=== PATIENT | female | born 1940 | race Hispanic/Latino ===

== ENCOUNTER 2018-05-15 11:35 | Emergency (ER) | payer OTHER ==
--- NOTE | 2018-05-15 12:14 | RAD REPORT ---
EXAM DESCRIPTION: CT - Head Brain Wo Cont - 05/15/2018 12:00 pm CLINICAL HISTORY: Left-sided numbness COMPARISON: 2007 TECHNIQUE: Computed axial tomography of the head was obtained. IV contrast was not requested. All CT scans are performed using dose optimization technique as appropriate and may include automated exposure control or mA/KV adjustment according to patient size. FINDINGS: An intracranial bleed is not seen . The ventricles are normal in caliber. No extra-axial fluid collection is noted. Fluid within the sinuses/ mastoids is not seen. IMPRESSION: No acute intracranial abnormality is seen. If patient's symptoms persist MRI of the bra in would be recommended.
--- NOTE | 2018-05-15 12:24 | ER ---
Nurse's Notes [facility] Name: Shira Bhakta Age: 77 yrs Sex: Female : 1940 Arrival Date: 05/15/2018 Time: 11:39 Bed 6 Private MD: Fatou Wells Diagnosis: Cerebral infarction Presentation: 05/15 11:51 Presenting complaint: Patient states: Patient reports numbness and tingling to left aj side of body since 1300 yesterday after sudden onset of headache when lifting head. Patient reports her granddaughter told her she was talking funny last night. Steady gait, mechanical press operator equal, speech is clear. Reports heaviness in left eyelid and sensation of "something stuck in my throat". Transition of care: patient was not received from another setting of care. An acute neurological deficit is present. The charge nurse has been notified. The patient has been moved to a treatment area. Pre-hospital glucose is not applicable to this patient. Onset of symptoms was May 14, 2018 at 13:00. Risk Assessment: Do you want to hurt yourself or someone else? Patient reports no desire to harm self or others. Initial Sepsis Screen: Does the patient meet any 2 criteria? No. Patient's initial sepsis screen is negative. Does the patient have a suspected source of infection? No. Patient's initial sepsis screen is negative. 11:51 Method Of Arrival: Ambulatory 11:51 Acuity: MELI 2 11:56 Care prior to arrival: Medication(s) given: ASA, 81 mg, x 2. Triage Assessment: 11:57 The onset of the patients symptoms was May 14, 2018 at 13:00. General: Appears in aj no apparent distress. comfortable, Behavior is calm, cooperative, appropriate for age. Pain: Denies pain. Neuro: Level of Consciousness is awake, alert, obeys commands, Oriented to person, place, time, situation, Appropriate for age Employment Services Director are equal bilaterally Moves all extremities. Full function Gait is steady, Speech is normal, Facial symmetry appears normal, Tingling in left side of forehead, left temporal area, left sikh, left zygomatic area, left cheek, left arm and left leg Reports headache in right parietal area, resolved paresthesias in left side of forehead, left temporal area, left eye, left sikh, left side of the nose, left zygomatic area, left cheek, left mandible, left arm and left leg. Respiratory: Airway is patent Respiratory effort is even, unlabored, Respiratory pattern is regular, symmetrical. Derm: Skin is intact, is healthy with good turgor, Skin is pink, warm \\T\\ dry. normal. Stroke Activation: Symptom onset > 6 hours Physician: Stroke Attending; Name: ; Notified At: ; Arrived At: Physician: Chief Stroke Resident; Name: ; Notified At: ; Arrived At: Physician: Stroke Resident; Name: ; Notified At: ; Arrived At: Physician: ED Attending; Name: ; Notified At: ; Arrived At: Physician: ED Resident; Name: ; Notified At: ; Arrived At: Historical: - Allergies: : No Known Allergies; aj - Home Meds: :55 levothyroxine 50 mcg tab 1 tab once daily [Active]; progesterone micronized oral oral aj [Active]; - PMHx: : Hypothyroidism; aj - PSHx: :55 Appendectomy; Hysterectomy; Lumpectomy; aj - Immunization history:: Adult Immunizations up to date. - Social history:: Smoking status: Patient/guardian denies using tobacco. - Ebola Screening: : Patient negative for fever greater than or equal to 101.5 degrees Fahrenheit, and additional compatible Ebola Virus Disease symptoms Patient denies exposure to infectious person Patient denies travel to an Ebola-affected area in the 21 days before illness onset No symptoms or risks identified at this time. - Family history:: not pertinent. Screenin:45 Abuse screen: Denies threats or abuse. Denies injuries from another. Nutritional aj screening: No deficits noted. Tuberculosis screening: No symptoms or risk factors identified. Fall Risk None identified. Assessment: 11:45 T-PA (Activase) Screening: Contraindications: Patient reports onset of signs and aj symptoms of stroke greater than 6 hours ago: Yes. 12:00 The patient has not been NPO before screening. The patient is alert, and able to follow aj commands. The patient does not exhibit slurred or garbled speech. The patient is not exhibiting difficulty speaking. The patient does not exhibit difficulty understanding words. The patient is able to swallow own secretions with no drooling or need for suction. Patient tolerated one teaspoon of water. No drooling, immediate coughing, gurgling, or clearing of the throat was noted. The patient tolerated 90mL of water. No drooling, immediate coughing, gurgling, or clearing of the throat was noted. The patient passed the bedside swallow screening. Oral medications may be given as ordered. Contact Physician for further diet orders. Provider notified of bedside swallow screening results: Cam Otto MD. 12:00 Reassessment: Patient appears in no apparent distress at this time. No changes from previously documented assessment. Patient and/or family updated on plan of care and expected duration. Pain level reassessed. Patient is alert, oriented x 3, equal unlabored respirations, skin warm/dry/pink. Patient denies pain at this time. Neuro: Level of Consciousness is awake, alert, obeys commands, Oriented to person, place, time, situation, Appropriate for age Employment Services Director are equal bilaterally Moves all extremities. Full function Gait is steady, Speech is normal, Facial symmetry appears normal, Pupils are PERRLA, Tingling in face, left arm and left leg and left mandible and left side of the nose and left eye. 14:45 Reassessment: Patient is alert, oriented x 3, equal unlabored respirations, skin aa5 warm/dry/pink. Vital Signs: 11:57 BP 147 / 81; Pulse 81; Resp 19; Temp 98.4; Pulse Ox 96% on R/A; Weight 58.97 kg; Height aj 5 ft. 6 in. (167.64 cm); 13:19 BP 124 / 67; Pulse 76; Resp 18; Pulse Ox 99% on R/A; aj 11:57 Body Mass Index 20.98 (58.97 kg, 167.64 cm) NIH Stroke Scale Scores: 11:45 NIHSS Score: 1 aj 12:20 NIHSS Score: 1 [facility] ED Course: 11:39 Patient arrived in ED. mr 11:40 Fatou Wells MD is Private Physician. mr 11:45 Cam Otto MD is Attending Physician. [facility] 11:45 Inserted saline lock: 22 gauge in right forearm, using aseptic technique. Blood aj collected. 11:50 Aracelis Hill, RN is Primary Nurse. aa5 11:50 Primary Nurse role handed off by Aracelis Hill, RN aj 11:50 Elenita Castro, RAS is Primary Nurse. aj 11:54 Triage completed. aj 11:57 Arm band placed on left wrist. Patient placed in an exam room, on a stretcher, on aj ranger aide, on pulse oximetry. CT ordered. 12:00 CT Head Brain wo Cont In Process Unspecified. EDMS 12:13 X-ray completed. Portable x-ray completed in exam room. Patient tolerated procedure la2 well. 12:16 Stroke CXR 1 View In Process Unspecified. EDMS 12:16 Patient has correct armband on for positive identification. Placed in gown. Bed in low mh5 position. Call light in reach. Side rails up X2. Warm blanket given. roller leveler operator on. Pulse ox on. NIBP on. 12:16 EKG done, by ED staff, reviewed by Cam Otto MD. mh5 12:44 Urine collected: clean catch specimen, clear. mh5 13:34 Head angio In Process Unspecified. EDMS 13:36 US Carotid Artery Bilateral In Process Unspecified. EDMS 13:55 IV discontinued, intact, Pressure dressing applied. aj 13:55 Inserted saline lock: 20 gauge in left antecubital area, using aseptic technique. aj 14:06 Report given to Nelson MCGINNIS [facility] Neuro IMU. aj 14:45 No provider procedures requiring assistance completed. aa5 14:45 Patient transferred, IV remains in place. aa5 Administered Medications: 12:16 CANCELLED (dose changed): Aspirin Chewable Tablet 324 mg PO once; 81 mg tablets x 4 aj 12:33 Drug: NS 0.9% 1000 ml Route: IV; Rate: 1 bolus; Site: right forearm; aj 13:15 Follow up: Response: No adverse reaction; IV Status: Completed infusion; IV Intake: aj 1000ml 12:33 Drug: foLIC Acid 1 mg Route: IVPB; Site: right forearm; aj 13:15 Follow up: Response: No adverse reaction; IV Status: Completed infusion; IV Intake: aj 0.2ml 12:33 Drug: Aspirin 162 mg Route: PO; aj 13:14 Follow up: Response: No adverse reaction aj 14:43 Not Given (Patient Refused): Rocephin - (cefTRIAXone) 1 grams IVPB once over 30 mins; aa5 (mix in 50 mL NS) Intake: 13:15 IV: 0ml; Total: 0ml. aj 13:15 IV: 1000ml; Total: 1000ml. aj Outcome: 12:22 ER care complete, transfer ordered by MD. gutierrez 14:45 [place] by ground [place] [facility] [facility] [place]. aa5 X-rays sent w/ patient. Note: Report given to [facility] 14:45 Condition: stable 14:45 Instructed on the need for transfer, Demonstrated understanding of instructions. 14:51 Patient left the ED. aa5 NIH Stroke Scale - NIH Stroke Score Date: 05/15/2018 Time: 11:45 Total Score = 1 1a. Level of Consciousness (LOC) - 0(Alert) 1b. Level of Consciousness (LOC) (Year \\T\\ Age) - 0(Both) 1c. LOC Commands (Open \\T\\ Closes Eyes/Shell Freezing Machine Operator) - 0(Both) 2. Best Gaze (Lateral Gaze Paresis) - 0(Normal) 3. Visual Field Loss - 0(No visual loss) 4. Facial Palsy - 0(Normal) 5a. Left Arm: Motor (10-second hold) - 0(No drift) 5b. Right Arm: Motor (10-second hold) - 0(No drift) 6a. Left Leg: Motor (5-second hold - always test supine) - 0(No drift) 6b. Right Leg: Motor (5-second hold - always test supine) - 0(No drift) 7. Limb Ataxia (finger/nose \\T\\ heel/sahu - test with eyes open) - 0(Absent) 8. Sensory Loss (pinprick arms/legs/face) - 1(Mild to moderate loss) 9. Best Language: Aphasia (description/naming/reading) - 0(No aphasia) 10. Dysarthria (speech clarity - read or repeat words) - 0(Normal) 11. Extinction and Inattention (visual/tactile/auditory/spatial/personal) - 0(No abnormality) Initials: NIH Stroke Scale - NIH Stroke Score Date: 05/15/2018 Time: 12:20 Total Score = 1 1a. Level of Consciousness (LOC) - 0(Alert) 1b. Level of Consciousness (LOC) (Year \\T\\ Age) - 0(Both) 1c. LOC Commands (Open \\T\\ Closes Eyes/Shell Freezing Machine Operator) - 0(Both) 2. Best Gaze (Lateral Gaze Paresis) - 0(Normal) 3. Visual Field Loss - 0(No visual loss) 4. Facial Palsy - 0(Normal) 5a. Left Arm: Motor (10-second hold) - 0(No drift) 5b. Right Arm: Motor (10-second hold) - 0(No drift) 6a. Left Leg: Motor (5-second hold - always test supine) - 0(No drift) 6b. Right Leg: Motor (5-second hold - always test supine) - 0(No drift) 7. Limb Ataxia (finger/nose \\T\\ heel/sahu - test with eyes open) - 0(Absent) 8. Sensory Loss (pinprick arms/legs/face) - 1(Mild to moderate loss) 9. Best Language: Aphasia (description/naming/reading) - 0(No aphasia) 10. Dysarthria (speech clarity - read or repeat words) - 0(Normal) 11. Extinction and Inattention (visual/tactile/auditory/spatial/personal) - 0(No abnormality) Initials: brenda Signatures: Dispatcher [employer] EDElenita Mendoza RN RN aj Anderson, Corey, MD MD cha Rivera, Mary mr Aracelis Hill, Noemí Smallwood RN Melissa Chu Corrections: (The following items were deleted from the chart) 11:49 11:48 Aracelis Hill, RAS is Primary Nurse. hi do 11:57 11:51 Care prior to arrival: None. ramona greene
--- NOTE | 2018-05-15 12:24 | EDPHYS ---
Physician Documentation [facility] Name: Shira Bhakta Age: 77 yrs Sex: Female : 1940 Arrival Date: 05/15/2018 Time: 11:39 Bed 6 Private MD: Fatou Wells ED Physician Cam Otto HPI: 05/15 12:16 This 77 yrs old Female presents to ER via Ambulatory with complaints of Left brenda Side numbness. 12:16 The patient's problem is reported as paresthesias, in left upper extremity, in left brenda lower extremity, in left side of face. Onset: The symptoms/episode began/occurred yesterday. Duration: The episode is continuous. Context: the episode(s) was witnessed, by family. The symptoms are alleviated by nothing. The symptoms are aggravated by nothing. The patient presents to the emergency department with paresthesias of the left lower extremity, left upper extremity, left side of the face. Context: occurred at home. Severity of symptoms: At their worst the symptoms were mild in the emergency department the symptoms are unchanged. Historical: - Allergies: 11:55 No Known Allergies; aj - Home Meds: 11:55 levothyroxine 50 mcg tab 1 tab once daily [Active]; progesterone micronized oral oral aj [Active]; - PMHx: 11:55 Hypothyroidism; aj - PSHx: 11:55 Appendectomy; Hysterectomy; Lumpectomy; aj - Immunization history:: Adult Immunizations up to date. - Social history:: Smoking status: Patient/guardian denies using tobacco. - Ebola Screening: : Patient negative for fever greater than or equal to 101.5 degrees Fahrenheit, and additional compatible Ebola Virus Disease symptoms Patient denies exposure to infectious person Patient denies travel to an Ebola-affected area in the 21 days before illness onset No symptoms or risks identified at this time. - Family history:: not pertinent. ROS: 12:16 Constitutional: Negative for fever, chills, and weight loss, Eyes: Negative for injury, brenda pain, redness, and discharge, ENT: Negative for injury, pain, and discharge, Neck: Negative for injury, pain, and swelling, Cardiovascular: Negative for chest pain, palpitations, and edema, Respiratory: Negative for shortness of breath, cough, wheezing, and pleuritic chest pain, Abdomen/GI: Negative for abdominal pain, nausea, vomiting, diarrhea, and constipation, Back: Negative for injury and pain, : Negative for injury, bleeding, discharge, and swelling, MS/Extremity: Negative for injury and deformity, Skin: Negative for injury, rash, and discoloration, Psych: Negative for depression, anxiety, suicide ideation, homicidal ideation, and hallucinations, Allergy/Immunology: Negative for hives, rash, and allergies, Endocrine: Negative for neck swelling, polydipsia, polyuria, polyphagia, and marked weight changes, Hematologic/Lymphatic: Negative for swollen nodes, abnormal bleeding, and unusual bruising. 12:16 Neuro: Positive for numbness, of the left arm and left leg and left mandible and left side of the nose and left eye. Exam: 12:16 Radiologist reports: see reporttrey cha 12:16 Constitutional: This is a well developed, well nourished patient who is awake, alert, and in no acute distress. Head/Face: Normocephalic, atraumatic. Eyes: Pupils equal round and reactive to light, extra-ocular motions intact. Lids and lashes normal. Conjunctiva and sclera are non-icteric and not injected. Cornea within normal limits. Periorbital areas with no swelling, redness, or edema. ENT: Nares patent. No nasal discharge, no septal abnormalities noted. Tympanic membranes are normal and external auditory canals are clear. Oropharynx with no redness, swelling, or masses, exudates, or evidence of obstruction, uvula midline. Mucous membranes moist. Neck: Trachea midline, no thyromegaly or masses palpated, and no cervical lymphadenopathy. Supple, full range of motion without nuchal rigidity, or vertebral point tenderness. No Meningismus. Chest/axilla: Normal chest wall appearance and motion. Nontender with no deformity. No lesions are appreciated. Cardiovascular: Regular rate and rhythm with a normal S1 and S2. No gallops, murmurs, or rubs. Normal PMI, no JVD. No pulse deficits. Respiratory: Lungs have equal breath sounds bilaterally, clear to auscultation and percussion. No rales, rhonchi or wheezes noted. No increased work of breathing, no retractions or nasal flaring. Abdomen/GI: Soft, non-tender, with normal bowel sounds. No distension or tympany. No guarding or rebound. No evidence of tenderness throughout. Back: No spinal tenderness. No costovertebral tenderness. Full range of motion. Female : Normal external genitalia. Skin: Warm, dry with normal turgor. Normal color with no rashes, no lesions, and no evidence of cellulitis. MS/ Extremity: Pulses equal, no cyanosis. Neurovascular intact. Full, normal range of motion. Neuro: Awake and alert, GCS 15, oriented to person, place, time, and situation. Cranial nerves II-XII grossly intact. Motor strength 5/5 in all extremities. Sensory grossly intact. Cerebellar exam normal. Normal gait. Psych: Awake, alert, with orientation to person, place and time. Behavior, mood, and affect are within normal limits. 12:20 Neuro: symptoms began at 130 pm 05/14/18, not a tpa candidate. [facility] Vital Signs: 11:57 BP 147 / 81; Pulse 81; Resp 19; Temp 98.4; Pulse Ox 96% on R/A; Weight 58.97 kg; Height aj 5 ft. 6 in. (167.64 cm); 13:19 BP 124 / 67; Pulse 76; Resp 18; Pulse Ox 99% on R/A; aj 11:57 Body Mass Index 20.98 (58.97 kg, 167.64 cm) NIH Stroke Scale Scores: 11:45 NIHSS Score: 1 12:20 NIHSS Score: 1 [facility] MDM: 11:45 Patient medically screened. [facility] 12:22 Data reviewed: vital signs, nurses notes, lab test result(s), EKG, radiologic studies, [facility] CT scan, plain films. 05/15 12:07 Order name: Basic Metabolic Panel 05/15 12:07 Order name: CBC with Diff 05/15 12:07 Order name: Protime (+inr) 05/15 12:07 Order name: Ptt, Activated 05/15 12:08 Order name: Basic Metabolic Panel; Complete Time: 13:10 EDMS 05/15 12:08 Order name: CBC with Automated Diff; Complete Time: 13:10 EDMS 05/15 11:50 Order name: CT Head Brain wo Cont; Complete Time: 13:10 aa5 05/15 12:07 Order name: Stroke CXR 1 View; Complete Time: 13:59 05/15 12:08 Order name: Protime (+INR); Complete Time: 13:10 EDMS 08 12:08 Order name: PTT, Activated Partial Thromb; Complete Time: 13:10 EDMS 08 12:34 Order name: US Carotid Artery Bilateral; Complete Time: 13:59 brenda 05/15 12:36 Order name: Head angio; Complete Time: 13:59 EDMS 08 13:12 Order name: Urine Culture [facility] 05/15 13:29 Order name: Urine Dipstick--Ancillary (enter results); Complete Time: 13:59 bd 05/15 12:07 Order name: EKG; Complete Time: 12:08 aj 05/15 12:07 Order name: Accucheck; Complete Time: 13:18 aj 05/15 12:07 Order name: Cardiac monitoring; Complete Time: 12:07 05/15 12:07 Order name: EKG - Nurse/Tech; Complete Time: 12:16 aj 05/15 12:07 Order name: IV Saline Lock; Complete Time: 12:33 05/15 12:07 Order name: Labs collected and sent; Complete Time: 12:08 05/15 12:07 Order name: NPO; Complete Time: 12:07 aj 05/15 12:07 Order name: O2 Per Protocol; Complete Time: 12:08 aj 05/15 12:07 Order name: O2 Sat Monitoring; Complete Time: 12:08 05/15 13:12 Order name: Urine Dipstick-Ancillary (obtain specimen); Complete Time: 13:15 [facility] Administered Medications: 12:16 CANCELLED (dose changed): Aspirin Chewable Tablet 324 mg PO once; 81 mg tablets x 4 aj 12:33 Drug: NS 0.9% 1000 ml Route: IV; Rate: 1 bolus; Site: right forearm; aj 13:15 Follow up: Response: No adverse reaction; IV Status: Completed infusion; IV Intake: aj 1000ml 12:33 Drug: foLIC Acid 1 mg Route: IVPB; Site: right forearm; aj 13:15 Follow up: Response: No adverse reaction; IV Status: Completed infusion; IV Intake: aj 0.2ml 12:33 Drug: Aspirin 162 mg Route: PO; aj 13:14 Follow up: Response: No adverse reaction aj 14:43 Not Given (Patient Refused): Rocephin - (cefTRIAXone) 1 grams IVPB once over 30 mins; aa5 (mix in 50 mL NS) Disposition: 05/15/18 12:22 Transfer ordered to [facility]. Diagnosis is Cerebral infarction. - Reason for transfer: Higher level of care. - Accepting physician is to [facility]. - Condition is Fair. - Problem is new. - Symptoms have improved. NIH Stroke Scale - NIH Stroke Score Date: 05/15/2018 Time: 11:45 Total Score = 1 1a. Level of Consciousness (LOC) - 0(Alert) 1b. Level of Consciousness (LOC) (Year \T\ Age) - 0(Both) 1c. LOC Commands (Open \T\ Closes Eyes/Managing Cognitive Engineer) - 0(Both) 2. Best Gaze (Lateral Gaze Paresis) - 0(Normal) 3. Visual Field Loss - 0(No visual loss) 4. Facial Palsy - 0(Normal) 5a. Left Arm: Motor (10-second hold) - 0(No drift) 5b. Right Arm: Motor (10-second hold) - 0(No drift) 6a. Left Leg: Motor (5-second hold - always test supine) - 0(No drift) 6b. Right Leg: Motor (5-second hold - always test supine) - 0(No drift) 7. Limb Ataxia (finger/nose \T\ heel/sahu - test with eyes open) - 0(Absent) 8. Sensory Loss (pinprick arms/legs/face) - 1(Mild to moderate loss) 9. Best Language: Aphasia (description/naming/reading) - 0(No aphasia) 10. Dysarthria (speech clarity - read or repeat words) - 0(Normal) 11. Extinction and Inattention (visual/tactile/auditory/spatial/personal) - 0(No abnormality) Initials: NIH Stroke Scale - NIH Stroke Score Date: 05/15/2018 Time: 12:20 Total Score = 1 1a. Level of Consciousness (LOC) - 0(Alert) 1b. Level of Consciousness (LOC) (Year \T\ Age) - 0(Both) 1c. LOC Commands (Open \T\ Closes Eyes/Managing Cognitive Engineer) - 0(Both) 2. Best Gaze (Lateral Gaze Paresis) - 0(Normal) 3. Visual Field Loss - 0(No visual loss) 4. Facial Palsy - 0(Normal) 5a. Left Arm: Motor (10-second hold) - 0(No drift) 5b. Right Arm: Motor (10-second hold) - 0(No drift) 6a. Left Leg: Motor (5-second hold - always test supine) - 0(No drift) 6b. Right Leg: Motor (5-second hold - always test supine) - 0(No drift) 7. Limb Ataxia (finger/nose \T\ heel/sahu - test with eyes open) - 0(Absent) 8. Sensory Loss (pinprick arms/legs/face) - 1(Mild to moderate loss) 9. Best Language: Aphasia (description/naming/reading) - 0(No aphasia) 10. Dysarthria (speech clarity - read or repeat words) - 0(Normal) 11. Extinction and Inattention (visual/tactile/auditory/spatial/personal) - 0(No abnormality) Initials: brenda Signatures: Dispatcher [employer] Elenita Lucas RN RN aj Anderson, Corey, MD MD cha Calderon, Audri, RN RN aa5 Corrections: (The following items were deleted from the chart) 12:16 12:15 Aspirin Chewable Tablet 324 mg PO once; 81 mg tablets x 4 ordered. brenda greene 14:51 12:22 05/15/2018 12:22 Transfer ordered to [facility]. aa5 Diagnosis is Cerebral infarction. Reason for transfer: Higher level of care. Accepting physician is to [facility]. Condition is Fair. Problem is new. Symptoms have improved. brenda
[2018-05-15] MEDS ORDERED: ASPIRIN 81 MG CHEWABLE TABLET ONE (12:26)
[2018-05-15] MEDS ORDERED: FOLIC ACID 5 MG/ML VIAL ONE (12:27)
[2018-05-15] MEDS ORDERED: NA CHLORIDE 0.9% 1,000 ML ONE (12:27)
[2018-05-15 12:52] LABS: Absolute Lymphocytes (CBC) 3.1 K/uL (0.7-4.9); Absolute Monocytes 0.6 K/uL (0.1-1.3); Absolute Neutrophil 3.9 K/uL (1.8-8.0); Basophils % 1.1 % (0-1.3); Eosinophils % 1.2 % (0-4.4); Hematocrit 39.1 % (36.0-45.0); Lymphocytes % 39.8 % (15.3-44.8); MCH 32.1 pg (27.0-35.0); MCV 92.5 fL (80-100); MPV 9.3 fL (7.6-11.3); Monocytes % 7.4 % (3.3-12.3); RBC Red Blood Cell Count 4.23 M/uL (3.86-4.86)
[2018-05-15 13:03] LABS: Protime INR 1.04
[2018-05-15 13:04] LABS: BUN Blood Urea Nitrogen 16 mg/dL (7-18); Bicarbonate 26 mmol/L (21-32); Glucose Level 113 mg/dL (74-106); Potassium 4.1 mmol/L (3.5-5.1); Sodium Level 144 mmol/L (136-145)
[2018-05-15 13:43] LABS: Urine Blood TRACE (NEG); Urine Glucose NEGATIVE (NEG); Urine Protein NEGATIVE (NEG)
--- NOTE | 2018-05-15 13:52 | RAD REPORT ---
EXAM DESCRIPTION: CTHead angio05/15/2018 1:34 pm CLINICAL HISTORY: Left-sided numbness COMPARISON: Head CT May 15 TECHNIQUE: CT angiogram of the head was obtained. 50 cc Isovue 370 was intravenously. 3D MIPS recons truction performed All CT scans are performed using dose optimization technique as appropriate and may include automated exposure control or mA/KV adjustment according to patient size. FINDINGS: The basilar, internal carotid, anterior cerebral, middle cerebral and posterior cerebral a rteries are normal caliber. An aneurysm is not seen. Right vertebral artery is hypoplastic A significant stenosis is not noted. IMPRESSION: Unremarkable CT angiogram head.
--- NOTE | 2018-05-15 13:54 | RAD REPORT ---
EXAM DESCRIPTION: USCarotid Artery Jrhftwpnr04/8/2018 1:36 pm CLINICAL HISTORY: Numbness COMPARISON: None FINDINGS: The velocity of the right internal carotid artery equals 60 cm/sec. The right ICA/CCA rati o 0.9 The velocity of the left internal carotid artery equals 70 cm/sec. The left ICA/CCA ratio 1.3 Plaque within the carotid arteries is not noted The vertebral arteries demonstrate antegrade flow IMPRESSION: Unremarkable exam NASCET criteria used. Mild 0-49% stenosis Moderate 50-69% stenosis Severe 70-99% stenosis
--- NOTE | 2018-05-15 13:55 | RAD REPORT ---
EXAM DESCRIPTION: Duncan Single View05/15/2018 12:15 pm CLINICAL HISTORY: Numbness COMPARISON: 2009 FINDINGS: The lungs appear clear of acute infiltrate. The heart is normal size IMPRESSION: No acute abnormalities displayed
[2018-05-15] MEDS ORDERED: CEFTRIAXONE/SWI 1gm 0 GM/0 ML SYR ONE (14:47)
--- NOTE | 2018-05-17 07:14 | EKG ---
Test Date: 2018-05-15 Test Time: 12:13:52 Proof Load Mechanic: WILIAM MEASUREMENT RESULTS: Intervals: Rate: 74 AL: 154 QRSD: 70 QT: 382 QTc: 424 Lee: P: 62 AL: 154 QRS: 2 T: 60 INTERPRETIVE STATEMENTS: Normal sinus rhythm Cannot rule out Anterior infarct, age undetermined Abnormal ECG Compared to ECG 08/21/2009 08:47:43 Myocardial infarct finding now present Electronically Signed On 05-17-18 07:11:18 ORDER ENTRY REPRESENTATIVE by Vasyl Alas
== END 2018-05-15 14:51 | disposition short-term general hospital (02) ==
LOC: ER 11:35
DX: I63.9 Cerebral infarction, unspecified (principal); R29.701 NIHSS score 1; E03.9 Hypothyroidism, unspecified
CPT/HCPCS: 36415; 70450; 70496; 71045; 80048; 81003; 85025; 85610; 85730; 87086; 87088; 93005; 93880; 96365; 99285; J7030; Q9967; J0696

== ENCOUNTER 2018-07-26 11:51 | Emergency (ER) | payer OTHER ==
--- OUTSIDE RECORDS SUMMARY | 2018-07-26 11:57 | XMS REPORT | Clinical Summary ---
:[address] [facility] Address [address] [place] [address] Care Team Providers Name Role Phone Pcp, No Primary Care Provider Unavailable Allergies No Known Allergies Medications Medication Sig Dispensed Refills Start Date End Date Status latanoprost latanoprost 0 Active (XALATAN) 0.005 % 0.005 % eye ophthalmic solution drops pravastatin 20 mg daily. 1 02/24/2018 Active (PRAVACHOL) 20 MG tablet lisinopril 2.5 mg. 0 Active (PRINIVIL,ZESTRIL) 2.5 MG tablet levothyroxine 50 mcg. 1 03/13/2018 Active (SYNTHROID, LEVOTHROID) 50 MCG tablet aspirin 81 MG Take 1 tablet 0 05/18/2018 Active chewable tablet (81 mg total) by 9 mouth daily. furosemide (LASIX) 20 mg. 0 Discontinued 20 MG tablet 8 propranolol 20 mg. 0 Discontinued (INDERAL) 20 MG 8 tablet Active Problems Problem Noted Date Hemianesthesia 05/15/2018 Headache 05/15/2018 Hypothyroidism 05/15/2018 TIA (transient ischemic attack) 05/15/2018 Encounters Date Type Specialty Care Team Description 05/15/2018 - Hospital Encounter General Internal Shahid Garrett Acute non intractable tension-type headache; 05/17/2018 Medicine Pradeep MURO MD Hemianesthesia; Luis Raymond Hypothyroidism, unspecified type; MD Juanito Cerebellar cyst; Kamran Melchor, TIA (transient ischemic attack); Abnormal brain MRI 05/15/2018 Travel after 07/25/2017 Family History Medical History Relation Name Comments Diabetes Brother Diabetes Father Diabetes Mother Stroke Mother Diabetes Sister Relation Name Status Comments Brother Father Mother Sister Social History Tobacco Use Types Packs/Day Years Used Date Never Smoker Smokeless Tobacco: Never Used Alcohol Use Drinks/Week oz/Week Comments No Alcohol Habits Answer Date Recorded How often do you have a drink containing alcohol? Never 05/15/2018 How many drinks containing alcohol do you have on a typical Not asked day when you are drinking? How often do you have six or more drinks on one occasion? Not asked Sex Assigned at Date Recorded Not on file Job Start Date Occupation Industry Not on file Not on file Not on file Travel History Travel Start Travel End No recent travel history available. Last Filed Vital Signs Vital Sign Reading Time Taken Blood Pressure 110/59 05/17/2018 10:00 AM CYLINDER INSPECTOR Pulse 77 05/17/2018 10:00 AM CYLINDER INSPECTOR Temperature 35.7 C (96.3 F) 05/17/2018 10:00 AM CYLINDER INSPECTOR Respiratory Rate 18 05/17/2018 10:00 AM CYLINDER INSPECTOR Oxygen Saturation 96% 05/17/2018 10:00 AM CYLINDER INSPECTOR Inhaled Oxygen Concentration - - Weight 57.4 kg (126 lb 9 oz) 05/15/2018 7:07 PM CYLINDER INSPECTOR Height 167.6 cm (5' 6") 05/15/2018 7:07 PM CYLINDER INSPECTOR Body Mass Index 20.43 05/15/2018 7:07 PM CYLINDER INSPECTOR Plan of Treatment Not on file Procedures Procedure Name Priority Date/Time Associated Comments Diagnosis RHYTHM STRIP - SCAN 05/24/2018 10:20 AM CYLINDER INSPECTOR REPORT OF PROCEDURE - 05/24/2018 10:20 ENDOSCOPY SCAN AM CYLINDER INSPECTOR MR BRAIN WITHOUT & Routine 05/16/2018 10:19 Results for this WITH IV CONTRAST PM CYLINDER INSPECTOR procedure are in the results section. ECHOCARDIOGRAM REPORT 05/16/2018 2:20 - SCAN PM CYLINDER INSPECTOR MR BRAIN WITHOUT IV Routine 05/16/2018 9:45 Results for this CONTRAST AM CYLINDER INSPECTOR procedure are in the results section. CBC (HEMOGRAM ONLY) Routine 05/15/2018 5:45 Results for this PM CYLINDER INSPECTOR procedure are in the results section. COMPREHENSIVE Routine 05/15/2018 5:45 Results for this METABOLIC PANEL PM CYLINDER INSPECTOR procedure are in the results section. TSH/FREE T4 IF Routine 05/15/2018 5:45 Results for this INDICATED PM CYLINDER INSPECTOR procedure are in the results section. VITAMIN B12 AND FOLATE Routine 05/15/2018 5:45 Results for this PM CYLINDER INSPECTOR procedure are in the results section. RPR Routine 05/15/2018 5:45 Results for this PM CYLINDER INSPECTOR procedure are in the results section. HEMOGLOBIN A1C AP Routine 05/15/2018 5:45 Results for this PM CYLINDER INSPECTOR procedure are in the results section. LIPID PANEL Routine 05/15/2018 5:45 Results for this PM CYLINDER INSPECTOR procedure are in the results section. 2D ECHO W/ DOPPLER Routine 05/15/2018 5:16 Results for this (CW/PW/COLOR) PM CYLINDER INSPECTOR procedure are in the results section. after 07/25/2017 Results RHYTHM STRIP - SCAN (05/24/2018 10:20 AM CYLINDER INSPECTOR) Narrative Performed At EKG-SCANNED (05/24/2018 10:20 AM CYLINDER INSPECTOR) Narrative Performed At MR brain without & with IV contrast (05/16/2018 10:19 PM CYLINDER INSPECTOR) Narrative Performed At FINAL REPORT [employer] MRI Brain with and without contrast Clinical History: Neoplasm: head, ETL ANALYST, suspected cerebeller lesion evaluation Technique: MRI of the brain utilizing axial T1, T2, FLAIR, GRE, DWI, sagittal T1; and postgadolinium axial, sagittal, and coronal T1-weighted images. Comparisons: None Findings: There is no evidence of acute infarct or hemorrhage. Again seen is the 10 mm cystic area in the left medial cerebellar hemisphere with internal nonvascular septation with no associated abnormal enhancement or surrounding FLAIR signal to suggest underlying neoplasm. Lesion appears to connect to the prominent adjacent arachnoid granulations of the occipital calvarium. Punctate hypointense SWI focus in the juxtacortical right frontal lobe nonspecific however likely sequela of chronic microhemorrhage. Multiple bilateral T2 and FLAIR hyperintense white matter foci likely represent chronic white matter microvascular disease. Mild generalized parenchymal volume loss with commensurate enlargement of CSF spaces and ventricles.No midline shift or mass effect.There is no abnormal intracranial enhancement or mass. There are no extra-axial fluid collections. The craniocervical junction is preserved. The major intracranial flow-voids appear patent. Minimal mucosal thickening in the right maxillary sinus. Middle ears and mastoid air cells are clear. Intraorbital contents are unremarkable. No aggressive osseous or soft tissue lesions identified. Hypointense T1 marrow signal within the C3 vertebral body no associated enhancement is favored to be degenerative. IMPRESSION: Again seen is the 10 mm cystic area in the left medial cerebellar hemisphere with internal nonvascular septation with no associated abnormal enhancement or surrounding FLAIR signal to suggest underlying neoplasm. Findings are favored to reflect protrusion of the adjacent arachnoid granulation to the cerebellum, less likely chronic infarction. No abnormal intracranial enhancement. Signed: Juan J Nunez MD Report Verified Date/Time:05/17/2018 00:59:15 Reading Location: [facility] C013T Transitional Reading Room Procedure Note Interface, External Ris In - 07/06/2018 5:11 PM CYLINDER INSPECTOR FINAL REPORT MRI Brain with and without contrast Clinical History: Neoplasm: head, ETL ANALYST, suspected cerebeller lesion evaluation Technique: MRI of the brain utilizing axial T1, T2, FLAIR, GRE, DWI, sagittal T1; and postgadolinium axial, sagittal, and coronal T1-weighted images. Comparisons: None Findings: There is no evidence of acute infarct or hemorrhage. Again seen is the 10 mm cystic area in the left medial cerebellar hemisphere with internal nonvascular septation with no associated abnormal enhancement or surrounding FLAIR signal to suggest underlying neoplasm. Lesion appears to connect to the prominent adjacent arachnoid granulations of the occipital calvarium. Punctate hypointense SWI focus in the juxtacortical right frontal lobe nonspecific however likely sequela of chronic microhemorrhage. Multiple bilateral T2 and FLAIR hyperintense white matter foci likely represent chronic white matter microvascular disease. Mild generalized parenchymal volume loss with commensurate enlargement of CSF spaces and ventricles. No midline shift or mass effect. There is no abnormal intracranial enhancement or mass. There are no extra-axial fluid collections. The craniocervical junction is preserved. The major intracranial flow-voids appear patent. Minimal mucosal thickening in the right maxillary sinus. Middle ears and mastoid air cells are clear. Intraorbital contents are unremarkable. No aggressive osseous or soft tissue lesions identified. Hypointense T1 marrow signal within the C3 vertebral body no associated enhancement is favored to be degenerative. IMPRESSION: Again seen is the 10 mm cystic area in the left medial cerebellar hemisphere with internal nonvascular septation with no associated abnormal enhancement or surrounding FLAIR signal to suggest underlying neoplasm. Findings are favored to reflect protrusion of the adjacent arachnoid granulation to the cerebellum, less likely chronic infarction. No abnormal intracranial enhancement. Signed: Juan J Nunez MD Report Verified Date/Time: 05/17/2018 00:59:15 Reading Location: [facility] C013T Transitional Reading Room Performing Organization Address City/State/Zipcode Phone Number [employer] ECHOCARDIOGRAM REPORT - SCAN (05/16/2018 2:20 PM CYLINDER INSPECTOR) Narrative Performed At MR brain without IV contrast (05/16/2018 9:45 AM CYLINDER INSPECTOR) Narrative Performed At FINAL REPORT [employer] MRI Brain without contrast Clinical History: Stroke Technique: MRI of the brain utilizing axial T2, FLAIR, GRE, DWI; sagittal and coronal T1-weighted images. Comparisons: None Findings: There is no evidence of acute infarct or hemorrhage. There is 10 mm cystic-appearing focus in the posterior medial left cerebellum, with an internal septation versus vascular structure. There is no apparent mass effect or reactive edema in the surrounding cerebellum. There are arachnoid granulations in the adjacent overlying occipital skull. There is no significant appearing white matter disease. There is age concordant generalized parenchymal volume loss without hydrocephalus or midline shift. There are no extra-axial fluid collections. The craniocervical junction is preserved. The major intracranial flow-voids appear patent. IMPRESSION: No evidence of acute infarct or hemorrhage. Incompletely characterized 10 mm cystic lesion in the posterior left cerebellum. This could represent an unusual protrusion of an arachnoid granulation into the cerebellum. The differential diagnosis includes an atypical dilated perivascular space, chronic infarct, and low-grade cystic neoplasm. Further evaluation with gadolinium-enhanced imaging is recommended. Signed: Sandra Stuart MD Report Verified Date/Time:05/16/2018 10:05:15 Reading Location: [facility] B1 C013V Neuro Reading Room Procedure Note Interface, External Ris In - 07/06/2018 5:11 PM CYLINDER INSPECTOR FINAL REPORT MRI Brain without contrast Clinical History: Stroke Technique: MRI of the brain utilizing axial T2, FLAIR, GRE, DWI; sagittal and coronal T1-weighted images. Comparisons: None Findings: There is no evidence of acute infarct or hemorrhage. There is 10 mm cystic-appearing focus in the posterior medial left cerebellum, with an internal septation versus vascular structure. There is no apparent mass effect or reactive edema in the surrounding cerebellum. There are arachnoid granulations in the adjacent overlying occipital skull. There is no significant appearing white matter disease. There is age concordant generalized parenchymal volume loss without hydrocephalus or midline shift. There are no extra-axial fluid collections. The craniocervical junction is preserved. The major intracranial flow-voids appear patent. IMPRESSION: No evidence of acute infarct or hemorrhage. Incompletely characterized 10 mm cystic lesion in the posterior left cerebellum. This could represent an unusual protrusion of an arachnoid granulation into the cerebellum. The differential diagnosis includes an atypical dilated perivascular space, chronic infarct, and low-grade cystic neoplasm. Further evaluation with gadolinium-enhanced imaging is recommended. Signed: Sandra Stuart MD Report Verified Date/Time: 05/16/2018 10:05:15 Reading Location: [address] Neuro Reading Room Performing Organization Address City/[facility]/Zipcode Phone Number [facility] Vitamin B12 and Folate (05/15/2018 5:45 PM CYLINDER INSPECTOR) Vitamin B12 447 213 - 816 pg/mL [facility] Folate 17.9 >=7.0 ng/mL [facility] Specimen Blood - Arm, Right Performing Organization Address [facility] Phone Number [address] [address] [phone] CENTER TSH/Free T4 If Indicated (05/15/2018 5:45 PM CYLINDER INSPECTOR) TSH 0.44 0.35 - 4.94 uIU/mL [facility] Specimen Blood - Arm, Right Performing Organization Address [facility] Phone Number [address] [phone] CENTER RPR (05/15/2018 5:45 PM CYLINDER INSPECTOR) RPR Nonreactive Nonreactive [facility] Specimen Blood - Arm, Right Performing Organization Address [facility] Phone Number [address] [address] [phone] CENTER CBC (Hemogram only) (05/15/2018 5:45 PM CYLINDER INSPECTOR) WBC 7.4 3.5 - 10.5 K/L [facility] RBC 4.31 3.93 - 5.22 M/L [facility] Hemoglobin 13.4 11.2 - 15.7 GM/DL [facility] Hematocrit 40.6 34.1 - 44.9 % [facility] MCV 94.2 79.4 - 94.8 fL [facility] MCH 31.1 25.6 - 32.2 pg [facility] MCHC 33.0 32.2 - 35.5 GM/DL [facility] RDW 13.1 11.7 - 14.4 % [facility] Platelets 212 150 - 450 K/CU MM [facility] MPV 10.4 9.4 - 12.3 fL [facility] nRBC 0 0 - 0 /100 WBC [facility] Specimen Blood - Arm, Right Performing Organization Address City/[facility]/Zipcode Phone Number [address] [address] CENTER Hemoglobin A1c (05/15/2018 5:45 PM CYLINDER INSPECTOR) Hemoglobin A1C 6.4 (H) 4.3 - 6.1 % [facility] Specimen Blood - Arm, Right Performing Organization Address City/[facility]/Zipcode Phone Number [facility] [address] [place] [phone] CENTER Lipid panel (05/15/2018 5:45 PM CYLINDER INSPECTOR) Triglycerides 110Comment: Specimen slightly mg/dL [facility] Cholesterol 179Comment: Specimen slightly mg/dL [facility] hemolyzed [facility] HDL 63 mg/dL [facility] LDL Calculated 94 mg/dL [facility] Specimen Blood - Arm, Right Narrative Performed At Triglyceride Reference Range: [facility] Low Risk <150 [id number] High Risk 200-499 Very High Risk>=500 Cholesterol Reference Range: Low Risk <200 [id number] High Risk>240 HDL Cholesterol Reference Range: Low Risk >=60 High Risk <40 LDL Cholesterol Reference Range: Optimal<100 Near [id number] Very High >=190 Performing Organization Address City/State/Zipcode Phone Number [facility] [address] [place] [address] CENTER Comprehensive metabolic panel (05/15/2018 5:45 PM CYLINDER INSPECTOR) Protein, Total 7.1Comment: Specimen 6.0 - 8.3 gm/dL [facility] slightly hemolyzed [facility] Albumin 3.8Comment: Specimen 3.5 - 5.0 g/dL [facility] slightly hemolyzed [facility] Alkaline Phosphatase 127 40 - 150 U/L [facility] Total Bilirubin 0.7Comment: Specimen 0.2 - 1.2 mg/dL [facility] hemolyzed [facility] Sodium 142 136 - 145 meq/L [facility] Potassium 4.0Comment: Specimen 3.5 - 5.1 meq/L [facility] slightly hemolyzed [facility] Chloride 107 98 - 107 meq/L [facility] CO2 29 22 - 29 meq/L [facility] BUN 13 7 - 21 mg/dL [facility] Creatinine 0.63Comment: Specimen 0.57 - 1.25 mg/dL [facility] slightly hemolyzed [facility] Glucose 96 70 - 105 mg/dL [facility] Calcium 9.7 8.4 - 10.2 mg/dL [facility] AST 23Comment: Specimen 5 - 34 U/L [facility] slightly hemolyzed [facility] ALT 23Comment: Specimen 6 - 55 U/L [facility] slightly hemolyzed [facility] EGFR Comment: INSUFFICIENT mL/min/1.73 sq m [facility] CLINICAL DATA TO [facility] CALCULATE ESTIMATED GFR. Specimen Blood - Arm, Right Performing Organization Address City/State/Zipcode Phone Number [facility] [address] [place] [address] [phone] CENTER 2D Echo W/Doppler(CW/PW/Color) (05/15/2018 5:16 PM CYLINDER INSPECTOR) Ejection Fraction [facility] ECHO [facility] MKCKESSON CPA Narrative Performed At Transthoracic Echocardiography Report (TTE) [facility] Demographics Patient NameROBINAY, JUANITADate of Study 05/15/2018 Female Visit [id number] Unknown Room Number 2206 Number Date of 1940Referring Physician Luis Raymond Age 77 year(s)Payroll Clerk Maia Lake RDCS Automatic Profile Sander Operator Nanci Landa MD CiolanPhysician Procedure Type of Study TTE procedure:2DECHO W DOPPLER(CW/PW/COLOR) (Routine) Indications:Suspected cardiac source of emboli. Clinical History HTN;HYPOTHYROIDISM HGB 13.4 HCT 40.6 % Contrast Medium: Bubble Study. Height: 0 inches Weight: 0 kg (0 lbs) BSA: 0 m^2 BMI: 0 kg/m^2 HR: 84 bpm BP: 139/63 mmHg Summary 1. The left ventricle is chamber size (by PSLAX dimension) is normal. Normal LV wall thickness. All of the LV segments contract normally. Estimated LVEF by qualitative assessment is normal (>60%). Grade 1 diastolic dysfunction (impaired relaxation and low-normal LA pressure). LA size is normal 2. The right ventricular chamber size and systolic function are within normal limits. RA cavity size is normal. Estimated peak systolic PA pressure is 30-35 mmHg . 3. Mild tricuspid regurgitation. 4. IV saline contrast injection was negative for a PFO (patent foramen ovale) at rest and post Valsalva. Previous Study No prior exam available for comparison. Signature Findings Left Ventricle The left ventricle is chamber size (by PSLAX di mension) is normal (female - LVIDd 3.8-5.2cm) . No rmal LV wall thickness. All of the LV segments co ntract normally . Global LV systolic function no rmal . Estimated LVEF by qualitative assessment is normal (>60%) . Grade 1 diastolic dysfunction (i mpaired relaxation and low-normal LA pressure). Left AtriumLA size is normal . Right VentricleThe right ventricular chamber size and systolic fu nction are within normal limits. Right Atrium RA cavity size is normal . Atrial SeptumIV saline contrast injection was negative for a PFO (p atent foramen ovale) at rest and post Valsalva . Aortic Valve Mild AoV cusp thickening. Ao V cusp mobility is normal . Mitral Valve Mild MV leaflet thickening. Tr jude mitral regurgitation. Tricuspid ValveMild tricuspid regurgitation. Es timated peak systolic PA pressure is 30-35 mmHg . Pulmonic Valve Normal PV structure and function by limited views an d Doppler. A trace of pulmonary regurgitation. AortaAortic root size (SInus of Valsalva diameter) is no rmal . Proximal ascending aorta size is normal . PericardiumNo significant pericardial effusion is visualized. IVC/SVC/PA/PV/PleuralThe right upper pulmonary vein (RUPV) is normal . Th e estimated RA pressure by IVC dynamics 5-10mmHg . Chambers/Structures Left Atrium LA Volume: 43.82 mlLA Area: 17.24 cm^2 LA Vol. Index: 0 ml/m^2 Left Ventricle LVIDd: 3.82 cm LV Septum Diastolic: 1.04 cm LV PW Diastolic: 0.95 cm LVEDV Bolden's:49.39 ml LVESV Bolden's:19.13 ml LVEF Bolden's: 61.3 %L VEDVI: 0 ml/m^2 LVESVI: 0 ml/m^2 LVOT Diameter: 1.93 cm Right Atrium RA Vol. (Sngl Plane): 34.91 ml Right Ventricle TAPSE: 2.14 cm Aorta Ao Root S of Katrina.: 2.81 cmAscending Aorta: 3.09 cm Doppler/Quantitative Measurements Mitral Valve MV Peak E-Wave: 0.75 m/sMV Peak A-Wave: 1.28 m/s E/A Ratio: 0.58 Peak Gradient: 2.22 mmHg Deceleration Time: 288.2 msec MV Leandro. Peak: Tissue Doppler E' Lateral Velocity: 0.1 m/sE/E': 7.63 LVOT Peak Velocity: 1.02 m/s Peak Gradient: 4.16 mmHg Mean Velocity: 0.62 m/s Mean Gradient: 1.77 mmHg LVOT Diameter: 1.93 cmLVOT VTI: 24.78 cm LVOT Area: 2.93 cm^2LVOT SV:72.46 ml LVOT CO: 6.09 l/min LVOT CI: 0 l/min/m^2 Tricuspid Valve TR Velocity: 2.43 m/s TR Gradient: 23.56 mmHg Procedure Note Interface, External Ris In - 05/16/2018 1:33 PM CYLINDER INSPECTOR Transthoracic Echocardiography Report (TTE) Demographics Patient Name REI FAULKNER Date of Study 05/15/2018 Gender Female Visit Number [id number] Race Unknown Room Number 2206 Number Date of 1940 Referring Physician Luis Raymond Age 77 year(s) Payroll Clerk Maia Lake [facility] Automatic Profile Sander Operator MD Giorgi Rivas Physician Procedure Type of Study TTE procedure:2DECHO W DOPPLER(CW/PW/COLOR) (Routine) Indications:Suspected cardiac source of emboli. Clinical History HTN;HYPOTHYROIDISM HGB 13.4 HCT 40.6 % Contrast Medium: Bubble Study. Height: 0 inches Weight: 0 kg (0 lbs) BSA: 0 m^2 BMI: 0 kg/m^2 HR: 84 bpm BP: 139/63 mmHg Summary 1. The left ventricle is chamber size (by PSLAX dimension) is normal. Normal LV wall thickness. All of the LV segments contract normally. Estimated LVEF by qualitative assessment is normal (>60%). Grade 1 diastolic dysfunction (impaired relaxation and low-normal LA pressure). LA size is normal 2. The right ventricular chamber size and systolic function are within normal limits. RA cavity size is normal. Estimated peak systolic PA pressure is 30-35 mmHg . 3. Mild tricuspid regurgitation. 4. IV saline contrast injection was negative for a PFO (patent foramen ovale) at rest and post Valsalva. Previous Study No prior exam available for comparison. Signature Findings Left Ventricle The left ventricle is chamber size (by PSLAX dimension) is normal (female - LVIDd 3.8-5.2cm) . Normal LV wall thickness. All of the LV segments contract normally . Global LV systolic function normal . Estimated LVEF by qualitative assessment is normal (>60%) . Grade 1 diastolic dysfunction (impaired relaxation and low-normal LA pressure). Left Atrium LA size is normal . Right Ventricle The right ventricular chamber size and systolic function are within normal limits. Right Atrium RA cavity size is normal . Atrial Septum IV saline contrast injection was negative for a PFO (patent foramen ovale) at rest and post Valsalva . Aortic Valve Mild AoV cusp thickening. AoV cusp mobility is normal . Mitral Valve Mild MV leaflet thickening. Trace mitral regurgitation. Tricuspid Valve Mild tricuspid regurgitation. Estimated peak systolic PA pressure is 30-35 mmHg . Pulmonic Valve Normal PV structure and function by limited views and Doppler. A trace of pulmonary regurgitation. Aorta Aortic root size (SInus of Valsalva diameter) is normal . Proximal ascending aorta size is normal . Pericardium No significant pericardial effusion is visualized. IVC/SVC/PA/PV/Pleural The right upper pulmonary vein (RUPV) is normal . The estimated RA pressure by IVC dynamics 5-10mmHg . Chambers/Structures Left Atrium LA Volume: 43.82 ml LA Area: 17.24 cm^2 LA Vol. Index: 0 ml/m^2 Left Ventricle LVIDd: 3.82 cm LV Septum Diastolic: 1.04 cm LV PW Diastolic: 0.95 cm LVEDV Bolden's:49.39 ml LVESV Bolden's:19.13 ml LVEF Bolden's: 61.3 % LVEDVI: 0 ml/m^2 LVESVI: 0 ml/m^2 LVOT Diameter: 1.93 cm Right Atrium RA Vol. (Sngl Plane): 34.91 ml Right Ventricle TAPSE: 2.14 cm Aorta Ao Root S of Katrina.: 2.81 cm Ascending Aorta: 3.09 cm Doppler/Quantitative Measurements Mitral Valve MV Peak E-Wave: 0.75 m/s MV Peak A-Wave: 1.28 m/s E/A Ratio: 0.58 Peak Gradient: 2.22 mmHg Deceleration Time: 288.2 msec MV Leandro. Peak: Tissue Doppler E' Lateral Velocity: 0.1 m/s E/E': 7.63 LVOT Peak Velocity: 1.02 m/s Peak Gradient: 4.16 mmHg Mean Velocity: 0.62 m/s Mean Gradient: 1.77 mmHg LVOT Diameter: 1.93 cm LVOT VTI: 24.78 cm LVOT Area: 2.93 cm^2 LVOT SV:72.46 ml LVOT CO: 6.09 l/min LVOT CI: 0 l/min/m^2 Tricuspid Valve TR Velocity: 2.43 m/s TR Gradient: 23.56 mmHg Performing Organization Address City/State/Zipcode Phone Number [facility] after 07/25/2017 Insurance Payer Benefit Plan / Group Subscriber ID Type Phone Address [employer] [place] [place] xxxxxxxxx Maps Contracted Advance Directives For more information, please contact:[address] [place], [place] [phone] Code Status Date Activated Date Inactivated Comments Full Code 05/15/2018 4:43 PM This code status was determined by: Patient
--- OUTSIDE RECORDS SUMMARY | 2018-07-26 11:57 | XMS REPORT ---
:1940 [facility] Address [address] [place] [id number] Care Team Providers Name Role Phone BRANDON MEHTA Unavailable Unavailable Problems This patient has no known problems. Allergies, Adverse Reactions, Alerts This patient has no known allergies or adverse reactions. Medications This patient has no known medications. Results Test Description Test Time Test Comments Text Results Atomic Results Result Comments RPR 2018-05-17 02:48:00 Test Item Value Reference Range Comments R SCREEN (YAMILEAKER) (test xfan=916) Nonreactive Nonreactive MR, BRAIN, [id number] 00:59:00FINAL REPORT MRI Brain with and without contrast Clinical History: Neoplasm: head, STRIPPER OPAQUER, suspectedcerebeller lesion evaluation Technique: MRI of the brain utilizing axial T1, T2, FLAIR, GRE, DWI, sagittal T1; and postgadolinium axial, sagittal, and coronal T1-weighted images. Comparisons: None Findings:There is no evidence of acute infarct or [...] and FLAIR hyperintense white matter foci likely representchronic white matter microvascular disease. Mild generalized parenchymal [...] tissue lesions identified. Hypointense T1 marrow signal withinthe C3 vertebral body no associated enhancement is favored to be degenerative. IMPRESSION: Again seen is the 10 mm cystic area in the left medial cerebellar hemisphere with internal nonvascular septation with no associated abnormal enhancement or surrounding FLAIR signal to suggest underlying neoplasm. Findings are favored to reflect protrusion of the adjacent arachnoid granulation to the cerebellum,less likely chronic infarction. No abnormal intracranial enhancement. Signed: Juan J Nunez Verified Date/Time: 05/17/2018 00:59:15 Reading Location: [address] Transitional Reading Room MR, BRAIN, WITHOUT [id number] 10 :05:00FINAL REPORT MRI Brain without contrast Clinical History: Stroke Technique: MRI of the brain utilizing axial T2, FLAIR, GRE, DWI ; sagittal and coronal T1-weighted images. Comparisons: None [...] perivascular space, chronic infarct, and low-grade cystic neoplasm.Further evaluation with gadolinium-enhanced imaging is recommended. Signed: Sandra Stuart Verified Date/Time: 05/16/2018 10:05:15 Reading Location: [facility] C013V Neuro Reading Room HEMOGLOBIN [id number] 19:37:00 Test Item Value Reference Range Comments HEMOGLOBIN A1C (BEAKER) (test uzhm=731) 6.4 % 4.3-6.1 VITAMIN B12 AND [id number] 19:03:00 Test Item Value Reference Range Comments VITAMIN B12 (BEAKER) (test zikh=400) 447 pg/mL 213-816 FOLATE (BEAKER) (test anfp=685) 17.9 ng/mL >=7.0 TSH/FREE T4 IF [id number] 18:40:00 Test Item Value Reference Range Comments THYROID STIMULATING HORMONE (BEAKER) (test 0.44 uIU/mL 0.35-4.94 yroz=724) COMPREHENSIVE METABOLIC [id number] 18:25:00 Test Item Value Reference Range Comments TOTAL PROTEIN (BEAKER) 7.1 gm/dL 6.0-8.3 Specimen slightly (test pfox=307) hemolyzed ALBUMIN (BEAKER) (test 3.8 g/dL 3.5-5.0 Specimen slightly faoq=7363) hemolyzed ALKALINE PHOSPHATASE 127 U/L 40-150 (BEAKER) (test qdrt=450) BILIRUBIN TOTAL (BEAKER) 0.7 mg/dL 0.2-1.2 Specimen slightly (test rpca=183) hemolyzed SODIUM (BEAKER) (test 142 meq/L 136-145 sunm=641) POTASSIUM (BEAKER) (test 4.0 meq/L 3.5-5.1 Specimen slightly hdfv=512) hemolyzed CHLORIDE (BEAKER) (test 107 meq/L 98-107 sihh=497) CO2 (BEAKER) (test 29 meq/L 22-29 xaos=578) BLOOD UREA NITROGEN 13 mg/dL 7-21 (BEAKER) (test iiep=008) CREATININE (BEAKER) (test 0.63 mg/dL 0.57-1.25 Specimen slightly qgnf=937) hemolyzed GLUCOSE RANDOM (BEAKER) 96 mg/dL 70-105 (test zpoi=699) CALCIUM (BEAKER) (test 9.7 mg/dL 8.4-10.2 jonz=720) AST (SGOT) (BEAKER) (test 23 U/L 5-34 Specimen slightly hets=258) hemolyzed ALT (SGPT) (BEAKER) (test 23 U/L 6-55 Specimen slightly tfdk=640) hemolyzed EGFR (BEAKER) (test mL/min/1.73 sq m INSUFFICIENT CLINICAL DATA dfge=1227) TO CALCULATE ESTIMATED GFR. LIPID [id number] 18:22:00 Test Item Value Reference Range Comments TRIGLYCERIDES (BEAKER) (test 110 mg/dL Specimen slightly hemolyzed bffb=047) CHOLESTEROL (BEAKER) (test 179 mg/dL Specimen slightly hemolyzed durx=255) HDL CHOLESTEROL (BEAKER) (test 63 mg/dL xobg=297) LDL CHOLESTEROL CALCULATED 94 mg/dL (BEAKER) (test xedm=935) Triglyceride Reference Range: Low Risk <150 Borderline 150- 199 High Risk 200-499 Very High Risk >=500Cholesterol Reference Range: Low Risk <200 Borderline 200-239 High Risk > 240HDL Cholesterol Reference Range: Low Risk >=60 High Risk <40LDL Cholesterol Reference Range: Optimal <100 Near Optimal 100-129 Borderline 130-159 High 160-189 Very High >=190CBC (HEMOGRAM ONLY)2018-05-15 18:06:00 Test Item Value Reference Range Comments WHITE BLOOD CELL COUNT (BEAKER) (test xpou=726) 7.4 K/ L 3.5-10.5 RED BLOOD CELL COUNT (BEAKER) (test ocub=451) 4.31 M/ L 3.93-5.22 HEMOGLOBIN (BEAKER) (test ddyu=280) 13.4 GM/DL 11.2-15.7 HEMATOCRIT (BEAKER) (test ucuz=950) 40.6 % 34.1-44.9 MEAN CORPUSCULAR VOLUME (BEAKER) (test mhtz=794) 94.2 fL 79.4-94.8 MEAN CORPUSCULAR HEMOGLOBIN (BEAKER) (test 31.1 pg 25.6-32.2 xfvv=748) MEAN CORPUSCULAR HEMOGLOBIN CONC (BEAKER) (test 33.0 GM/DL 32.2-35.5 gbwb=718) RED CELL DISTRIBUTION WIDTH (BEAKER) (test 13.1 % 11.7-14.4 mhas=609) PLATELET COUNT (BEAKER) (test xavt=887) 212 K/CU MM 150-450 MEAN PLATELET VOLUME (BEAKER) (test xxse=065) 10.4 fL 9.4-12.3 NUCLEATED RED BLOOD CELLS (BEAKER) (test 0 /100 WBC 0-0 qbbt=373)
--- NOTE | 2018-07-26 14:40 | RAD REPORT ---
EXAM DESCRIPTION: RAD - Foot Right 3 View - 07/26/2018 2:34 pm CLINICAL HISTORY: Right foot pain status post injury FINDINGS: Avulsion fracture involves the base of the fifth metatarsal. Fracture line extends proximally along t he fifth metatarsal 27 millimeters and is oblique and minimally displaced. No dislocation seen
--- NOTE | 2018-07-26 14:40 | RAD REPORT ---
EXAM DESCRIPTION: RAD - Ankle Right 3 View - 07/26/2018 2:34 pm CLINICAL HISTORY: Right ankle pain FINDINGS: No fracture or dislocation is seen involving the ankle Avulsion fracture involves the base of the fifth metatarsal. Fracture line extends proximally along t he fifth metatarsal 27 millimeters and is oblique and minimally displaced. No dislocation seen
--- NOTE | 2018-07-26 14:51 | EDPHYS ---
Physician Documentation [facility] Name: Shira Bhakta Age: 77 yrs Sex: Female : 1940 Arrival Date: 07/26/2018 Time: 11:54 Bed Treatment Private MD: Fatou Wells ED Physician Cam Otto HPI: 07/26 12:26 This 77 yrs old Female presents to ER via Wheelchair with complaints of Fall brenda Injury, Foot Pain. 12:26 Details of fall: The patient fell from an upright position, while walking. Onset: The brenda symptoms/episode began/occurred just prior to arrival. Associated injuries: The patient sustained dorsum of right foot, decreased range of motion, hematoma, painful injury, swelling. Severity of symptoms: At their worst the symptoms were mild, moderate, in the emergency department the symptoms are unchanged. The patient has not experienced similar symptoms in the past. Historical: - Allergies: 12:06 No Known Allergies; aa5 - PMHx: 12:06 Hypothyroidism; aa5 - PSHx: 12:06 Appendectomy; Hysterectomy; Lumpectomy; aa5 - Immunization history:: Flu vaccine is up to date. - Social history:: Smoking status: Patient/guardian denies using tobacco. - Ebola Screening: : No symptoms or risks identified at this time. ROS: 12:27 Constitutional: Negative for fever, chills, and weight loss, Eyes: Negative for injury, brenda pain, redness, and discharge, ENT: Negative for injury, pain, and discharge, Neck: Negative for injury, pain, and swelling, Cardiovascular: Negative for chest pain, palpitations, and edema, Respiratory: Negative for shortness of breath, cough, wheezing, and pleuritic chest pain, Abdomen/GI: Negative for abdominal pain, nausea, vomiting, diarrhea, and constipation, Back: Negative for injury and pain, : Negative for injury, bleeding, discharge, and swelling, Skin: Negative for injury, rash, and discoloration, Neuro: Negative for headache, weakness, numbness, tingling, and seizure, Psych: Negative for depression, anxiety, suicide ideation, homicidal ideation, and hallucinations, Allergy/Immunology: Negative for hives, rash, and allergies, Endocrine: Negative for neck swelling, polydipsia, polyuria, polyphagia, and marked weight changes, Hematologic/Lymphatic: Negative for swollen nodes, abnormal bleeding, and unusual bruising. 12:27 MS/extremity: Positive for decreased range of motion, pain, swelling, tenderness, of the dorsum of right foot. Exam: 12:27 Constitutional: This is a well developed, well nourished patient who is awake, alert, brenda and in no acute distress. Head/Face: Normocephalic, atraumatic. Eyes: Pupils equal round and reactive to light, extra-ocular motions intact. Lids and lashes normal. Conjunctiva and sclera are non-icteric and not injected. Cornea within normal limits. Periorbital areas with no swelling, redness, or edema. ENT: Nares patent. No nasal discharge, no septal abnormalities noted. Tympanic membranes are normal and external auditory canals are clear. Oropharynx with no redness, swelling, or masses, exudates, or evidence of obstruction, uvula midline. Mucous membranes moist. Neck: Trachea midline, no thyromegaly or masses palpated, and no cervical lymphadenopathy. Supple, full range of motion without nuchal rigidity, or vertebral point tenderness. No Meningismus. Chest/axilla: Normal chest wall appearance and motion. Nontender with no deformity. No lesions are appreciated. Cardiovascular: Regular rate and rhythm with a normal S1 and S2. No gallops, murmurs, or rubs. Normal PMI, no JVD. No pulse deficits. Respiratory: Lungs have equal breath sounds bilaterally, clear to auscultation and percussion. No rales, rhonchi or wheezes noted. No increased work of breathing, no retractions or nasal flaring. Abdomen/GI: Soft, non-tender, with normal bowel sounds. No distension or tympany. No guarding or rebound. No evidence of tenderness throughout. Back: No spinal tenderness. No costovertebral tenderness. Full range of motion. Skin: Warm, dry with normal turgor. Normal color with no rashes, no lesions, and no evidence of cellulitis. Neuro: Awake and alert, GCS 15, oriented to person, place, time, and situation. Cranial nerves II-XII grossly intact. Motor strength 5/5 in all extremities. Sensory grossly intact. Cerebellar exam normal. Normal gait. Psych: Awake, alert, with orientation to person, place and time. Behavior, mood, and affect are within normal limits. 12:27 Musculoskeletal/extremity: Extremities: noted in the dorsum of right foot: decreased ROM, ecchymosis, pain, swelling, tenderness. Vital Signs: 12:07 BP 156 / 91; Pulse 74; Resp 16 S; Temp 98.0(TE); Pulse Ox 97% on R/A; Weight 58.06 kg aa5 (R); Height 5 ft. 6 in. (167.64 cm) (R); Pain 7/10; 12:07 Body Mass Index 20.66 (58.06 kg, 167.64 cm) aa5 MDM: 12:10 Patient medically screened. [facility] 12:37 Data reviewed: vital signs, nurses notes, radiologic studies, plain films. [facility] 07/26 12:26 Order name: Foot Right 3 View XRAY; Complete Time: 14:45 [facility] 07/26 12:26 Order name: Ankle Right 3 View XRAY; Complete Time: 14:45 [facility] 07/26 12:26 Order name: Ice pack; Complete Time: 13:05 [facility] 07/26 14:46 Order name: Walking boot: short; Complete Time: 15:03 [facility] Administered Medications: No medications were administered Disposition: 07/26/18 14:50 Discharged to Home. Impression: Displaced fracture of fifth metatarsal bone, left foot - comminuted, mild displacement. - Condition is Stable. - Discharge Instructions: Metatarsal Fracture. - Prescriptions for Tylenol- Codeine #3 300-30 mg Oral Tablet - take 2 tablets by ORAL route every 6 hours As needed; 24 tablet. - Medication Reconciliation Form, Thank You Letter, Antibiotic Education, Prescription Opioid Use form. - Follow up: Fatou Wells MD; When: 2 - 3 days; Reason: Recheck today's complaints, Continuance of care, Re-evaluation by your physician. Follow up: Víctor Rodriguez MD; When: 2 - 3 days; Reason: Recheck today's complaints, Continuance of care, Re-evaluation by your physician. - Problem is new. - Symptoms have improved. Signatures: Dispatcher [employer] Cam Ly MD MD cha Calderon, Audri RN RN aa5 Elsie Polanco RN RN ss Corrections: (The following items were deleted from the chart) 15:15 14:50 07/26/2018 14:50 Discharged to Home. Impression: Displaced fracture of fifth ss metatarsal bone, left foot - comminuted, mild displacement. Condition is Stable. Forms are Medication Reconciliation Form, Thank You Letter, Antibiotic Education, Prescription Opioid Use. Follow up: Fatou Wells; When: 2 - 3 days; Reason: Recheck today's complaints, Continuance of care, Re-evaluation by your physician. Follow up: Víctor Rodriguez; When: 2 - 3 days; Reason: Recheck today's complaints, Continuance of care, Re-evaluation by your physician. Problem is new. Symptoms have improved. brenda
--- NOTE | 2018-07-26 14:51 | ER ---
Nurse's Notes [facility] Name: Shira Bhakta Age: 77 yrs Sex: Female : 1940 Arrival Date: 07/26/2018 Time: 11:54 Bed Treatment Private MD: Fatou Wells Diagnosis: Displaced fracture of fifth metatarsal bone, left foot-comminuted, mild displacement Presentation: 07/26 12:05 Presenting complaint: Patient states: "I fell coming down a step and my right foot is aa5 hurting". Pt denies LOC,denies head injury. Denies any other symptoms. Transition of care: patient was not received from another setting of care. Onset of symptoms was July 26, 2018. Risk Assessment: Do you want to hurt yourself or someone else? Patient reports no desire to harm self or others. Initial Sepsis Screen: Does the patient meet any 2 criteria? No. Patient's initial sepsis screen is negative. Does the patient have a suspected source of infection? No. Patient's initial sepsis screen is negative. Care prior to arrival: None. 12:05 Method Of Arrival: Wheelchair aa5 12:05 Acuity: MELI 4 aa5 Historical: - Allergies: 12:06 No Known Allergies; aa5 - PMHx: 12:06 Hypothyroidism; aa5 - PSHx: 12:06 Appendectomy; Hysterectomy; Lumpectomy; aa5 - Immunization history:: Flu vaccine is up to date. - Social history:: Smoking status: Patient/guardian denies using tobacco. - Ebola Screening: : No symptoms or risks identified at this time. Screenin:12 Abuse screen: Denies threats or abuse. Denies injuries from another. Nutritional ss screening: No deficits noted. Tuberculosis screening: No symptoms or risk factors identified. Never had TB. Fall Risk Fall in past 12 months (25 points). Assessment: 12:30 General: Appears comfortable, Behavior is calm, cooperative. Pain: Complains of pain in aa5 dorsum of right foot Pain does not radiate. Pain currently is 7 out of 10 on a pain scale. Quality of pain is described as sharp, tender, Pain began post-fall [employer] Is continuous, Aggravated by weight bearing. Neuro: Level of Consciousness is awake, alert, obeys commands, Oriented to person, place, time, situation. Cardiovascular: Patient's skin is warm and dry. Respiratory: Airway is patent Respiratory effort is even, unlabored, Respiratory pattern is regular, symmetrical. GI: No signs and/or symptoms were reported involving the gastrointestinal system. : No signs and/or symptoms were reported regarding the genitourinary system. EENT: No signs and/or symptoms were reported regarding the EENT system. Derm: Skin is pink, warm \\T\\ dry. Bruising that is dark purple, on dorsum of right foot. Musculoskeletal: Swelling present in dorsum of right foot. 13:05 Reassessment: Patient and/or family updated on plan of care and expected duration. Pain aa5 level reassessed. Patient is alert, oriented x 3, equal unlabored respirations, skin warm/dry/pink. ice pack applied to right foot. Awaiting x-rays at this time, pt notified of wait time. Pt states no complaints at this time, pt reports she does not need pain medication at this time. . 14:10 Reassessment: Patient appears in no apparent distress at this time. Patient and/or ss family updated on plan of care and expected duration. Pain level reassessed. AWAITING XRAY'S TO BE OBTAINED. SPOKE WITH NEW FROM XRAY DEPARTMENT WHO STATES THAT THEY WILL BE THERE MOMENTARILY TO OBTAIN IMAGES. Vital Signs: 12:07 BP 156 / 91; Pulse 74; Resp 16 S; Temp 98.0(TE); Pulse Ox 97% on R/A; Weight 58.06 kg aa5 (R); Height 5 ft. 6 in. (167.64 cm) (R); Pain 7/10; 12:07 Body Mass Index 20.66 (58.06 kg, 167.64 cm) aa5 ED Course: 11:54 Patient arrived in ED. mr 11:55 Fatou Wells MD is Private Physician. mr 12:05 Arm band placed on. aa5 12:06 Triage completed. aa5 12:07 Aracelis Hill RN is Primary Nurse. aa5 12:10 Cam Otto MD is Attending Physician. [facility] 14:10 X-ray completed. Portable x-ray completed in exam room. Patient tolerated procedure jb2 well. 14:12 Patient has correct armband on for positive identification. Bed in low position. Call ss light in reach. 14:35 Foot Right 3 View XRAY In Process Unspecified. EDMS 14:35 Ankle Right 3 View XRAY In Process Unspecified. EDPA 14:48 Fatou Wells MD is Referral Physician. [facility] 14:48 Víctor Rodriguez MD is Referral Physician. [facility] 15:07 3D boot applied to right foot. em1 15:14 No provider procedures requiring assistance completed. Patient did not have IV access ss during this emergency room visit. Administered Medications: No medications were administered Outcome: 14:50 Discharge ordered by . [facility] 15:14 Discharged to home via wheelchair, with friend. ss 15:14 Condition: good 15:14 Discharge instructions given to patient, friend, Instructed on discharge instructions, follow up and referral plans. medication usage, Demonstrated understanding of instructions, follow-up care, medications, splint care. 15:15 Patient left the ED. ss Signatures: Dispatcher [employer] Cam Ly MD MD cha Rivera, Fay mr Sampson, New jb2 Hugo, Ford em1 Aracelis Hill, RN RN aa5 Elsie Polanco RN RN ss Corrections: (The following items were deleted from the chart) 15:25 13:05 Reassessment: Patient and/or family updated on plan of care and expected aa5 duration. Pain level reassessed. Patient is alert, oriented x 3, equal unlabored respirations, skin warm/dry/pink. ice pack applied to right foot. Awaiting x-rays at this time, pt notified of wait time. . aa5
== END 2018-07-26 15:15 | disposition home or self-care (01) ==
LOC: ER 11:51
DX: S92.352A Displaced fracture of fifth metatarsal bone, left foot, initial encounter for closed fracture (principal); W18.30XA Fall on same level, unspecified, initial encounter; Y93.01 Activity, walking, marching and hiking; E03.9 Hypothyroidism, unspecified
CPT/HCPCS: 99283

== ENCOUNTER 2022-01-28 17:02 | Emergency (ER) | payer OTHER ==
--- OUTSIDE RECORDS SUMMARY | 2022-01-28 17:05 | XMS REPORT | Continuity of Care Document ---
:1940 Author Organization [facility] t Address [address] [place] [address] Care Team Providers Name Role Phone Hunter Foster DO Primary Care Physician Fatou Wells Attending Clinician Unavailable HUNTER FOSTER Attending Clinician Unavailable LAB90 Attending Clinician Unavailable Hunter Foster DO Attending Clinician CLARE WALKER Attending Clinician Unavailable Only, Adc Test Attending Clinician Unavailable Yesenia Sung MD Attending Clinician YESENIA SUNG Attending Clinician Unavailable Doctor Unassigned, Rote Attending Clinician Unavailable BRANDON MEHTA Attending Clinician Unavailable Fatou Wells Admitting Clinician Unavailable BRANDON MEHTA Admitting Clinician Unavailable Payers Payer Name Policy Type Policy Number Effective Date Expiration Date S ourbessy [employer] MEDICARE 7 [id number] 2022 [id number] GOLD 00:00:00 PLUS 2021 HUMANA MA 5 [id number] 2019 00:00:00 CHOICE CARE [id number] 2019 00:00:00 Problems Condition Condition Condition Status Onset Resolution Last Treating Co mments Source Name Details Category Date Date Treatment Clinician Date Dermatitis Dermatitis Disease Active Horace wolffy 11-13 Seybold 00:00: 00 Mixed Mixed Disease Active Brooke hyperlipid hyperlipid 6-08 Se ybgeorge emia emia 00:00: 00 Acquired Acquired Disease Active Kelse y hypothyroi hypothyroi 6-08 Se ybold dism dism 00:00: 00 Allergies, Adverse Reactions, Alerts Allergy Allergy Status Severity Reaction(s) Onset Inactive Treating Comm ents Source Name Type Date Date Clinician Lipitor Adverse Active pt denies Commo n Reaction allergy [facility] NO KNOWN Drug Active [facility] ALLERGIE Class [facility] Social History Social Habit Start Date Stop Date Quantity Comments Source Exposure to Not sure [facility] SARS-CoV-2 [facility] (event) [place] Tobacco use and 2021-11-13 2021-11-13 Smokeless tobacco Ke lsey Seybold exposure 00:00:00 00:00:00 non-user Sex Ass[birth year] At [birth year] Brooke Talavera ybgeorge 00:00:00 00:00:00 Smoking Status Start Date Stop Date Source Unknown if ever smoked [facility] Never smoked tobacco Brooke Amaya old Medications Ordered Filled Start Stop Current Ordering Indication Dosage Frequency Signature Comments Components Source Medication Medication Date Date Medication? Clinician (SIG) Name Name Yes Take by Brooke Vit-Fe 6-08 mouth Seybold Fumarate-FA 10:36: ( 05 COMPLETE OR) Aspirin 81 Yes 81mg Take 81 mg K elsey MG oral 608 by mouth Seybold Chewable 10:35: daily Tablet 25 Cranberry Yes cranberry Uche sey 1000 MG 6-08 Seybold oral 10:35: Capsule 25 Levothyroxi Yes 50ug Take 50 Uche sey ne Sodium 6-08 mcg by Seybold 50 MCG oral 10:35: mouth Tablet 25 daily Take in the morning on an empty stomach Pravastatin Yes 1{tbl} Take 1 Ke lsey Sodium 20 6-08 tablet by Seybo ld MG oral 10:35: mouth Tablet 25 daily Ketoconazol Yes [id number] Apply to Brooke del toro 2 % apply 6-08 irritated Sey bold externally 00:00: skin BID Cream 00 for 7-10 days Triamcinolo Yes [id number] Apply 1 Brooke ne 11-13 applicatio Seybold Acetonide 00:00: n 0.1 % apply 00 topically externally 2 times Cream daily Cetirizine Yes [id number] 5mg QD Take 0.5 Brooke HCl (ZyrTEC 11-13 capsules Seyb old Allergy) 10 00:00: (5 mg MG oral 00 total) by Capsule mouth daily as needed (itching) Pravastatin Pravastatin Yes Na Wells 1 tablet Common Sodium Sodium [facility] Baby Baby Yes Na Wells not Common Aspirin Aspirin defined [facility] Clobetasol Clobetasol Yes Na Wells 1 Common Propionate Propionate applicatio Spirit n to - [facility] affected [facility] Nasacort Nasacort Yes Na Wells 1 puff in Common Allergy All[facility] Calcium Yes Na Wells not Common defined [facility] Multivitami Multivitami Yes Na Wells not Common n n defined [facility] Levothyroxi Levothyroxi Yes Na Wells TAKE 1 Common ne Sodium ne Sodium TABLET BY Spirit MOUTH ON - [facility] AN EMPTY St STOMACH IN [facility] Synthroid Synthroid Yes Na Wells 1 tablet Common in the [facility] morning on - [facility] an empty St stomach [facility] Vital Signs Vital Name Observation Time Observation Value Comments Source Body height 2021-11-13 15:40:00 167.6 cm Brooke Piero meño Body weight 2021-11-13 15:40:00 60.51 kg Brooke Piero meño BMI 2021-11-13 15:40:00 21.53 kg/m2 Brooke Piero meño Systolic blood pressure 2021-11-13 15:32:00 138 mm[Hg] Brooke Beauchamp Diastolic blood 2021-11-13 15:32:00 74 mm[Hg] Virginia Beauchamp pressure Heart rate 2021-11-13 15:32:00 76 /min Brooke Piero meño Body temperature 2021-11-13 15:32:00 36.56 Georgina Viviane ey Seybold Respiratory rate 2021-11-13 15:32:00 20 /min Viviane jacome Seybold Oxygen saturation in 2021-11-13 15:32:00 97 /min Brooke Beauchamp Arterial blood by Pulse oximetry Procedures Procedure Date / Time Performed Performing Clinician [facility] e CONSENT/REFUSAL FOR 2020-06-22 20:44:26 Doctor Unassigned, No [facility] DIAGNOSIS AND Name Medical Branch TREATMENT ASSIGNMENT OF BENEFITS 2020-06-22 20:44:12 Doctor Unassigned, No [facility] Name Medical Branch Encounters Start End Encounter Admission Attending Care Care Encounter Source Date/Time Date/Time Type Type Clinicians Facility Department ID 2022-01-13 Outpatient Wells, Na STLMLC STLMLC [id number] Common 11:04:00 [id number] [facility] 2021-07-03 Outpatient Wells, Na STLMLC STLMLC [id number] 2 Common 13:47:19 [id number] [facility] 2021-07-03 Outpatient Wells, Na STLMLC STLMLC [id number] 2 Common 13:11:35 [id number] [facility] 2021-07-03 Outpatient Wells, Na STLMLC STLMLC [id number] 2 Common 13:05:10 [id number] [facility] 2021-07-03 Outpatient Wells, Na STLMLC STLMLC [id number] 2 Common 12:34:19 [id number] [facility] 2021-07-03 Outpatient Wells, Na STLMLC STLMLC [id number] 2 Common 12:33:43 [id number] [facility] 2021-07-03 Outpatient Wells, Na STLMLC STLMLC [id number] 2 Common 11:36:25 [id number] [facility] 2021-07-03 Outpatient Wells, Na STLMLC STLMLC [id number] 2 Common 11:28:38 [id number] [facility] 2021-07-03 Outpatient Wells, Na STLMLC STLMLC [id number] 2 Common 11:17:28 [id number] [facility] 2022-07-09 2022-07-09 Outpatient BROOKE FOSTER [id number] Brooke 10:00:00 10:00:00 HUNTER Lincoln d 2022-01-07 2022-01-07 ambulatory STLMLC STLMLC [id number] Common 00:00:00 00:00:00 [facility] 2022-01-06 2022-01-06 Outpatient LAB90 BROOKE TUCKER [id number] Brooke 10:15:00 10:15:00 Seybol d 2022-01-06 2022-01-06 Office Blaise Foster [id number] Brooke 09:15:00 10:00:00 Visit Hunter Domingo [id number] Se ybold [id number] 2021-12-11 2021-12-11 Outpatient BROOKE FOSTER [id number] Brooke 08:00:00 08:00:00 HUNTER Talaveraybol lakeisha 2021-11-26 2021-11-26 ambulatory STLMLC STLMLC [id number] Common 00:00:00 00:00:00 [facility] 2021-11-13 2021-11-13 Office Blaise Foster [id number] Brooke 10:30:00 11:00:00 Visit Hunter Domingo [id number] Se ybold [id number] 2021-05-27 2021-05-27 ambulatory STLMLC STLMLC [id number] Common 00:00:00 00:00:00 [facility] 2021-02-18 2021-02-18 Outpatient STLMLC STLMLC [id number] Common 00:00:00 00:00:00 [facility] 2020-11-13 2020-11-13 Outpatient STLMLC STLMLC [id number] Common 00:00:00 00:00:00 [facility] 2020-08-13 2020-08-13 Outpatient [facility] [id number] Univers 08:30:00 08:30:00 [id number] [facility] 2020-08-13 2020-08-13 [facility] [id number] Univers 08:30:00 08:30:00 CLARE [facility] 2020-08-08 2020-08-08 Outpatient STLMLC STLMLC [id number] Common 00:00:00 00:00:00 [facility] 2020-08-06 2020-08-06 Outpatient STLMLC STLMLC [id number] Common 00:00:00 00:00:00 [facility] 2020-08-06 2020-08-06 Outpatient STLMLC STLMLC [id number] Common 00:00:00 00:00:00 [facility] 2020-07-16 2020-07-16 Outpatient Brennen WALKER, [facility] [id number] Univers 14:00:00 14:00:00 CLARE [id number] [facility] 2020-07-16 2020-07-16 Outpatient Brennen WALKER [facility] [id number] Univers 14:00:00 14:00:00 CLARE [facility] 2020-07-10 2020-07-10 Outpatient STLMLC STLMLC [id number] Common 00:00:00 00:00:00 [facility] 2020-06-22 2020-06-22 Laboratory Only, Adc Test [facility] [id number] Univers 14:48:38 15:03:38 Only Yesenia Sung [id number] [facility]y of [place] [id number] [facility] [id number] [facility] 353 Branch 2020-06-22 2020-06-22 Outpatient Brennen SUNG [facility] [id number] Univers 14:45:00 14:45:00 YESENIA [facility] 2020-06-22 2020-06-22 Orders Doctor ALCANTAR [id number] Univers 00:00:00 00:00:00 Only Unassigned, JOSUE [id number] ity of [facility] [id number] [facility] [id number] [facility] 009 Branch 2020-01-18 2020-01-18 [id number] Common 10:00:00 10:00:[address] [facility] 2020-01-01 2020-01-01 [facility] [id number] Common 12:31:00 12:31:[address] [facility] 2019-12-20 2019-12-20 [facility] [id number] Common 08:25:00 08:25:[address] [facility] 2019-12-16 2019-12-16 [facility] [id number] Common 14:40:00 14:40:[address] [facility] 2019-12-15 2019-12-15 [facility] [id number] Common 16:59:00 16:59:[address] [facility] 2019-12-13 2019-12-13 [facility] [id number] Common 14:20:00 14:20:[address] [facility] [address] [facility] 2019-12-02 2019-12-02 [facility] [id number] Common 15:32:00 15:32:[address] [facility] 2019-12-02 2019-12-02 [facility] [id number] Common 14:20:00 14:20:[address] [facility] 2019-12-01 2019-12-01 [facility] [id number] Common 10:50:00 10:50:[address] [facility] 2019-07-15 2019-07-15 [facility] [id number] Common 08:00:00 08:00:[address] [facility] 2019-07-06 2019-07-06 [facility] [id number] Common 09:37:00 09:37:[address] [facility] 2019-06-04 2019-06-04 [facility] [id number] Common 18:27:00 18:27:[address] [facility] 2019-01-12 2019-01-12 [facility] [id number] Common 11:20:00 11:20:[address] [facility] 2018-12-21 2018-12-21 [facility] [id number] Common 09:50:00 09:50:[address] [facility] 2018-11-24 2018-11-24 [facility] [id number] Common 17:45:00 17:45:00 [facility] 2018-09-27 2018-09-27 [facility] [id number] Common 11:00:00 11:00:00 [facility] 2018-08-30 2018-08-30 [facility] [id number] Common 11:00:00 11:00:00 [facility] 2018-08-03 2018-08-03 [facility] [id number] Common 10:30:00 10:30:00 [facility] 2018-07-29 2018-07-29 [facility] [id number] Common 13:45:00 13:45:[address] [facility] Results Test Description Test Time Test Comments Results Result Comments Source RPR 2018-05-17 02:48:00 Test Item Value Reference Range Interpretation Comme nts RPR SCREEN (BEAKER) (test code = 420) Nonreactive Nonreactive MR, BRAIN, [id number] 00:59:00FINAL REPORT MRI Brain with and without contrast Clinical History: Neoplasm: head, OIL BURNER, suspectedcerebeller lesion evaluation Technique: MRI of the brain utilizing axial T1, T2, FLAIR, GRE, DWI, sagittal T1; and postgadolinium axial, sagittal, and coronal T1-weighted images. Comparisons: None Findings:There is no evidence of acute infarct or hemorrhage. Again seen is the 10 mm cystic area in the left medial cerebellar hemisphere with internal nonvascular septation with no associa alan abnormal enhancement or surrounding FLAIR signal to suggest underlying neoplasm. Lesion appears to connect to the prominent adjacent arachnoid granulations of the occipital calvarium. Punctate hypointense SWI focus in the juxtacortical right frontal lobe nonspecific however likely sequela of chronic microhemorrhage. Multiple bilateral T2 and FLAIR hyperintense white matter foci likely represent chronic white matter microvascular disease. Mild generalized parenchymal volume loss with commensurateenlargement of CSF spaces and ventricles. No midline shift or mass effect. There is no abnormal intracranial enhancement or mass. There are no extra-axial fluid collections. The craniocervical junctionis preserved. The major intracranial flow-voids appear patent. [...] the adjacent arachnoid granulation to the cerebellum, lesslikely chronic infarction. No abnormal intracranial enhancement. Signed: Juan J Nunez [facility] [facility] Verified Date/Time: 05/17/2018 00:59:15 Reading Location: [address] Reading Room MR, BRAIN, WITHOUT [id number] 10:05:00FINAL REPORT MRI Brain without contrast Clinical History: Stroke Technique: MRIof the brain utilizing axial T2, FLAIR, GRE, [...] arachnoid granulation into the cerebellum. The differential diagnosisincludes an atypical dilated perivascular space, chronic infarct, and low-grade cystic neoplasm. Further evaluation with gadolinium-enhanced imaging is recommended. Signed: Sandra Willett [place] Verified Date/Time: 05/16/2018 10:05:15 Reading Location: [facility] C013V Neuro Reading Room HEMOGLOBIN [id number] 19:37:00 Test Item Value Reference Range Interpretation Comments HEMOGLOBIN A1C (BEAKER) (test code = 6.4 % 4.3-6.1 H 368) VITAMIN B12 AND [id number] 19:03:00 Test Item Value Reference Range Interpretation Comments VITAMIN B12 (BEAKER) (test code = 447 pg/mL 213-816 774) FOLATE (BEAKER) (test code = 362) 17.9 ng/mL >=7.0 TSH/FREE T4 IF [id number] 18:40:00 Test Item Value Reference Range Interpretation Comments THYROID STIMULATING HORMONE 0.44 uIU/mL 0.35-4.94 (BEAKER) (test code = 772) COMPREHENSIVE METABOLIC [id number] 18:25:00 Test Item Value Reference Range Interpretation Comments TOTAL PROTEIN 7.1 gm/dL 6.0-8.3 Specimen sligh tly (BEAKER) (test code hemolyze d = 770) ALBUMIN (BEAKER) 3.8 g/dL 3.5-5.0 Specimen sl ightly (test code = 1145) hemolyzed ALKALINE PHOSPHATASE 127 U/L 40-150 (BEAKER) (test code = 346) BILIRUBIN TOTAL 0.7 mg/dL 0.2-1.2 Specimen sli ghtly (BEAKER) (test code hemolyze d = 377) SODIUM (BEAKER) 142 meq/L 136-145 (test code = 381) POTASSIUM (BEAKER) 4.0 meq/L 3.5-5.1 Specimen slightly (test code = 379) hemolyzed CHLORIDE (BEAKER) 107 meq/L 98-107 (test code = 382) CO2 (BEAKER) (test 29 meq/L 22-29 code = 355) BLOOD UREA NITROGEN 13 mg/dL 7-21 (BEAKER) (test code = 354) CREATININE (BEAKER) 0.63 mg/dL 0.57-1.25 Specimen slightly (test code = 358) hemolyzed GLUCOSE RANDOM 96 mg/dL 70-105 (BEAKER) (test code = 652) CALCIUM (BEAKER) 9.7 mg/dL 8.4-10.2 (test code = 697) AST (SGOT) (BEAKER) 23 U/L 5-34 Specimen slightly (test code = 353) hemolyzed ALT (SGPT) (BEAKER) 23 U/L 6-55 Specimen slightly (test code = 347) hemolyzed EGFR (BEAKER) (test mL/min/1.73 INSUFFIC IENT code = 1092) sq m CLINICAL DATA T O CALCULATE ESTIM ATED GFR. LIPID [id number] 18:22:00 Test Item Value Reference Range Interpretation Comments TRIGLYCERIDES (BEAKER) 110 mg/dL Speci men slightly (test code = 540) hemolyzed CHOLESTEROL (BEAKER) 179 mg/dL Specime n slightly (test code = 631) hemolyzed HDL CHOLESTEROL (BEAKER) 63 mg/dL (test code = 976) LDL CHOLESTEROL 94 mg/dL CALCULATED (BEAKER) (test code = 633) Triglyceride Reference Range: Low Risk <150 Borderline 150-199 High Risk 200- 499 Very High Risk >=500Cholesterol Reference Range: Low Risk <200 Borderline 200-239 High Risk >240HDL Cholesterol Reference Range: Low Risk >=60 High Risk <40LDL Cholesterol Reference Range: Optimal <100 Near Optimal 100-129 Borderline 130-159 High 160-189 Very High >=190CBC (HEMOGRAM ONLY)2018-05-15 18:06:00 Test Item Value Reference Range Interpretation Comments WHITE BLOOD CELL COUNT (BEAKER) 7.4 K/ L 3.5-10.5 (test code = 775) RED BLOOD CELL COUNT (BEAKER) 4.31 M/ L 3.93-5.22 (test code = 761) HEMOGLOBIN (BEAKER) (test code = 13.4 GM/DL 11.2-15.7 410) HEMATOCRIT (BEAKER) (test code = 40.6 % 34.1-44.9 411) MEAN CORPUSCULAR VOLUME (BEAKER) 94.2 fL 79.4-94.8 (test code = 753) MEAN CORPUSCULAR HEMOGLOBIN 31.1 pg 25.6-32.2 (BEAKER) (test code = 751) MEAN CORPUSCULAR HEMOGLOBIN CONC 33.0 GM/DL 32.2-35.5 (BEAKER) (test code = 752) RED CELL DISTRIBUTION WIDTH 13.1 % 11.7-14.4 (BEAKER) (test code = 412) PLATELET COUNT (BEAKER) (test 212 K/CU MM 150-450 code = 756) MEAN PLATELET VOLUME (BEAKER) 10.4 fL 9.4-12.3 (test code = 754) NUCLEATED RED BLOOD CELLS 0 /100 WBC 0-0 (BEAKER) (test code = 413)
[2022-01-28 17:54] LABS: Absolute Lymphocytes (CBC) 4.8 K/uL (0.7-4.9); Hematocrit 39.5 % (36.0-45.0); Lymphocytes % 56.6 % (15.3-44.8); MCV 91.6 fL (80-100); MPV 8.7 fL (7.6-11.3); RBC Red Blood Cell Count 4.31 M/uL (3.86-4.86)
--- NOTE | 2022-01-28 18:06 | RAD REPORT ---
EXAM DESCRIPTION: RAD - Knee Right 3 View - 01/28/2022 5:49 pm CLINICAL HISTORY: PAIN COMPARISON: No comparisons FINDINGS: Lucency is seen in the inferior pole of the patella likely a nondisplaced patella fracture . Mild adjacent soft tissue swelling.
--- NOTE | 2022-01-28 18:07 | RAD REPORT ---
EXAM DESCRIPTION: RAD - Elbow Left 3 View - 01/28/2022 5:49 pm CLINICAL HISTORY: PAIN COMPARISON: No comparisons FINDINGS: Cortical irregularity is seen involving the radial head within the elbow joint effusion no alan. This likely indicates a radial head fracture.
--- NOTE | 2022-01-28 18:16 | RAD REPORT ---
EXAM DESCRIPTION: CT - CTHCSPWOC - 01/28/2022 6:06 pm CLINICAL HISTORY: Trauma, head and neck injury. Head injury COMPARISON: No comparisons TECHNIQUE: Axial 5 mm thick images of the head were obtained. Axial 2 mm thick images of the cervical spine were obtained with sagittal and coronal reconstruction images generated and reviewed. All CT scans are performed using dose optimization technique as appropriate and may include automated exposure control or mA/KV adjustment according to patient size. FINDINGS: CT HEAD WITHOUT CONTRAST: No acute hemorrhage, hydrocephalus or extra-axial collection is identified.No areas of brain edema or midline shift. The paranasal sinuses and mastoids are clear.The calvarium is intact. Prominent right periorbital hem atoma. CT CERVICAL SPINE WITHOUT CONTRAST: No fracture or subluxation.Prominent degenerative change with posterior osteophytes lower cervical sp ine.No prevertebral soft tissues swelling is identified. Areas of subpleural nodularity noted in the right upper lobe. IMPRESSION: No acute intracranial or cervical spine findings. Mild lower cervical degenerative changes.
[2022-01-28 18:17] LABS: Potassium 3.8 mmol/L (3.5-5.1)
--- NOTE | 2022-01-28 18:18 | RAD REPORT ---
EXAM DESCRIPTION: CT - CTORBIT CLINICAL HISTORY: Facial trauma Trauma, facial pain COMPARISON: No comparisons TECHNIQUE: Axial 2 mm thick images of the orbits were obtained with sagittal and coronal reconstruct ion images. All CT scans are performed using dose optimization technique as appropriate and may include automated exposure control or mA/KV adjustment according to patient size. FINDINGS: No acute facial bone fracture is seen.Mandible was not completely visualized CT orbits. Significant hematoma is present surrounding right orbit.The right globe appears intact without vitreo us abnormality.The paranasal sinuses and mastoids are clear. IMPRESSION: Negative for facial bone fracture. Large right periorbital hematoma. Right globe appears unremarkable.
[2022-01-28] MEDS ORDERED: MORPHINE 2 MG/ML SYR ONE (18:47)
[2022-01-28] MEDS ORDERED: ONDANSETRON 4 MG/2 ML VIAL ONE (18:47)
[2022-01-28] MEDS ORDERED: ACETAMINOPHEN 325 MG TABLET ONE ×2 (18:53→19:00)
--- NOTE | 2022-01-28 19:27 | ER ---
Nurse's Notes [facility] Name: Shira Bhakta Age: 81 yrs Sex: Female : 1940 Arrival Date: 01/28/2022 Time: 17:03 Bed 4 Private MD: Gene Foster Diagnosis: Syncope Near;Unspecified injury of head, initial encounter;Contusion of unspecified part of head;Contusion of eyeball and orbital tissues, right eye, initial encounter;Nondisplaced fracture of head of left radius, initial encounter for closed fracture;Nondisplaced transverse fracture of right patella, initial encounter for closed fracture Presentation: 01/28 17:13 Chief complaint: Patient states: Patient fell in garage from standing; patient endorses jh5 becoming dizzy and then blacking out. Pt has a large goose-egg above right eye with swelling - pt has very blurred vision out of right eye. Coronavirus screen: Vaccine status: Patient reports receiving the 2nd dose of the covid vaccine. Client denies travel out of the [place] in the last 14 days. Ebola Screen: Patient negative for fever greater than or equal to 101.5 degrees Fahrenheit, and additional compatible Ebola Virus Disease symptoms Patient denies exposure to infectious person. Patient denies travel to an Ebola-affected area in the 21 days before illness onset. Initial Sepsis Screen: Does the patient meet any 2 criteria? No. Patient's initial sepsis screen is negative. Does the patient have a suspected source of infection? No. Patient's initial sepsis screen is negative. Risk Assessment: Do you want to hurt yourself or someone else? Patient reports no desire to harm self or others. Onset of symptoms was January 28, 2022. 17:13 Method Of Arrival: Ambulatory jh5 17:13 Acuity: MELI 2 jh5 17:44 Care prior to arrival: None. Mechanism of Injury: Fall from standing position. Trauma ph event details: Injury occurred in the [facility], Injury occurred: at home. Injury occurred: January 28, 2022. Triage Assessment: 17:18 General: Appears uncomfortable, slender, well groomed, Behavior is calm, cooperative, jh5 appropriate for age, anxious. Trauma Activation: Alert Physician: ED Physician; Name: brandon; Notified At: 17:41; Arrived At: 17:37 Physician: General Surgeon; Name: ; Notified At: 17:41; Arrived At: Physician: Radiology; Name: Josefina; Notified At: 17:41; Arrived At: 17:45 Physician: Respiratory; Name: ; Notified At: 17:41; Arrived At: Physician: Lab; Name: ; Notified At: 17:41; Arrived At: Historical: - Allergies: 17:34 No Known Allergies; ph - Home Meds: 17:18 progesterone micronized Oral [Active]; levothyroxine 50 mcg tab 1 tab once daily jh5 [Active]; - PMHx: 17:18 Hypothyroidism; jh5 - Immunization history:: Adult Immunizations up to date. - Social history:: Smoking status: Patient denies any tobacco usage or history of. Screenin:35 Abuse screen: Denies threats or abuse. Nutritional screening: No deficits noted. tw2 Tuberculosis screening: No symptoms or risk factors identified. Fall Risk Secondary diagnosis (15 points) impaired mobility. 17:35 Abuse screen: Denies threats or abuse. Denies injuries from another. Nutritional ph screening: No deficits noted. Tuberculosis screening: No symptoms or risk factors identified. Fall Risk Fall in past 12 months (25 points). No secondary diagnosis (0 pts). IV access (20 points). Ambulatory Aid- None/Bed Rest/Nurse Assist (0 pts). Primary Survey: 17:42 NO uncontrolled hemorrhage observed. A: The client is awake and alert. The airway is ph patent. Breathing/Chest: Spontaneous respiratory effort, equal unlabored respirations, breath sounds clear bilaterally, regular pattern, symmetrical chest rise and fall. Circulation: No external hemorrhage present. Regular and strong central pulse, skin warm/dry/normal color. Disability Pupils are equal, round, reactive to light and accommodation. Client is alert. Exposure/Environment: There is no evidence of uncontrolled external bleeding. Obvious injury(ies) are noted at this time: Significant swelling to R eye. 19:18 Reassessment Alertness and Airway: Awake and alert. The airway is patent. Breathing: ph Spontaneous respiratory effort, equal unlabored respirations, breath sounds clear bilaterally, regular pattern with symmetrical chest rise and fall. Circulation: No external hemorrhage noted. Regular and strong central pulse, skin warm/dry/normal color. Disability: Pupils Pupils are equal, round, reactive to light and accomodation. Alert. Secondary Survey: 17:48 HEENT: Eyes: Edema noted right eye. Ecchymosis noted right eye. Other pt reports ph blurred vision in R eye. Musculoskeletal: Reports pain in right knee. Assessment: 17:35 Reassessment: xray at bedside at this time. tw2 18:45 Reassessment: Patient appears in no apparent distress at this time. Patient and/or ph family updated on plan of care and expected duration. Pain level reassessed. Patient is alert, oriented x 3, equal unlabored respirations, skin warm/dry/pink. Pt refusing morphine at this time, requesting Tylenol. Vital Signs: 17:13 BP 167 / 177; Pulse 102; Resp 16; Temp 98.6; Pulse Ox 98% ; Weight 58.06 kg; Height 5 jh5 ft. 6 in. (167.64 cm); Pain 10/10; 18:51 BP 177 / 99; Pulse 86; Resp 17; Pulse Ox 96% on R/A; tw2 20:53 BP 178 / 86; Pulse 86; Resp 18; Pulse Ox 97% ; vc1 17:13 Body Mass Index 20.66 (58.06 kg, 167.64 cm) jh5 [place] Coma Score: 17:43 Eye Response: spontaneous(4). Verbal Response: oriented(5). Motor Response: obeys ph commands(6). Total: 15. 18:08 Eye Response: spontaneous(4). Verbal Response: oriented(5). Motor Response: obeys kdr commands(6). Total: 15. 19:18 Eye Response: spontaneous(4). Verbal Response: oriented(5). Motor Response: obeys ph commands(6). Total: 15. Trauma Score (Adult): 17:43 Eye Response: spontaneous(1); Verbal Response: oriented(1); Motor Response: obeys ph commands(2); Systolic BP: > 89 mm Hg(4); Respiratory Rate: 10 to 29 per min(4); [place] Score: 15; Trauma Score: 12 19:18 Eye Response: spontaneous(1); Verbal Response: oriented(1); Motor Response: obeys ph commands(2); Systolic BP: > 89 mm Hg(4); Respiratory Rate: 10 to 29 per min(4); [place] Score: 15; Trauma Score: 12 ED Course: 17:03 Patient arrived in ED. mr 17:03 Kristin GeneDO is Private Physician. mr 17:18 Triage completed. jh5 17:18 Arm band placed on right wrist. jh5 17:24 Daron Reyez MD is Attending Physician. kdr 17:33 Sara Qiu RN is Primary Nurse. ph 17:43 Patient has correct armband on for positive identification. Bed in low position. Call ph light in reach. Side rails up X2. Pulse ox on. NIBP on. Door closed. Noise minimized. Warm blanket given. Ice pack to injury. 17:48 Patient maintains SpO2 saturation greater than 95% on room air. Thermoregulation: warm ph blanket given to patient. 17:49 Inserted saline lock: 20 gauge in left antecubital area, using aseptic technique. Blood mb7 collected. 17:50 Basic Metabolic Panel Sent. mb7 17:50 CBC with Diff Sent. mb7 17:50 Type And Screen Sent. mb7 17:51 Knee Right 3 View XRAY In Process Unspecified. EDMS 17:51 Elbow Left 3 View XRAY In Process Unspecified. EDMS 18:08 Head C Spine Mpr Wo Con In Process Unspecified. EDMS 18:08 Orbits Wo Con W/ Mpr In Process Unspecified. EDMS 20:43 Orthoglass splint: posterior long arm splint applied to the left arm. Knee immobilizer oe applied on right knee. Sling applied to left arm. 20:53 No provider procedures requiring assistance completed. IV discontinued, intact, vc1 bleeding controlled, No redness/swelling at site. Pressure dressing applied. Administered Medications: 18:50 Drug: Tylenol 650 mg Route: PO; ph 19:17 Follow up: Response: No adverse reaction ph 19:41 Drug: Acetaminophen-Codeine (300 mg-30 mg) 1 tablet Route: PO; aa9 Medication: 20:53 VIS not applicable for this client. vc1 Intake: 17:43 PO: 0ml; Total: 0ml. ph Output: 17:43 Urine: 0ml; Total: 0ml. ph Outcome: 19:26 Discharge ordered by . kdr 21:04 Discharged to home via wheelchair, with family. vc1 21:04 Condition: good 21:04 Discharge instructions given to patient, family, Instructed on discharge instructions, follow up and referral plans. medication usage, Demonstrated understanding of instructions, follow-up care, medications, Prescriptions given X 2. 21:04 Waiting on splintPatient's length of stay extended due to vc1 21:05 Patient left the ED. vc1 Signatures: Dispatcher [employer] EDMS Daron Reyez MD MD kdr Rivera, Mary mr Hall, Patricia, RN RN ph Ginger Morales, RN RN tw2 Juan Phillips Jessica RN RN [facility] [place] [id number] Gisela Romo RN RN vc1 Annalee Bower, RN RN aa9 Corrections: (The following items were deleted from the chart) 17:52 17:48 Musculoskeletal: Reports ph ph
--- NOTE | 2022-01-28 19:28 | EDPHYS ---
Physician Documentation [facility] Name: Shira Bhakta Age: 81 yrs Sex: Female : 1940 Arrival Date: 01/28/2022 Time: 17:03 Bed 4 Private MD: Gene Foster ED Physician Daron Reyez HPI: 01/28 18:08 This 81 yrs old Female presents to ER via Ambulatory with complaints of Head kdr Injury With LOC-Adult. 18:08 The patient or guardian reports deformity, injury, pain, swelling, tenderness, The kdr patient states that she was walking outside when she suddenly collapsed, passing out and losing consciousness for a brief moment. It is unclear exactly how long she may have been. However her family was not far behind her, more than a few minutes. When she fell she struck her face on the concrete. She complains of right orbit periorbital pain and swelling. She also complains of blurry vision in the right eye. She also complains of right knee and left elbow pain. She has no other injuries. This is not happened to her before.. The complaints affect the right eye. Context of injury: The problem was sustained at home, resulted from a fall, while walking. Onset: The symptoms/episode began/occurred acutely, suddenly, just prior to arrival. Associated signs and symptoms: Loss of consciousness: This patient experience a loss of consciousness, Pertinent positives: loss of conciousness, dazed, injury, Pertinent negatives: dazed, double vision, headache, incontinence, nausea, neck pain, seizure, shortness of breath, tinnitus, vomiting, weakness in extremities, generalized weakness. Severity of symptoms: At their worst the symptoms were mild, moderate, just prior to arrival, in the emergency department the symptoms are unchanged. The patient has not experienced similar symptoms in the past. The patient has not recently seen a physician. Historical: - Allergies: 17:34 No Known Allergies; ph - Home Meds: 17:18 progesterone micronized Oral [Active]; levothyroxine 50 mcg tab 1 tab once daily jh5 [Active]; - PMHx: 17:18 Hypothyroidism; jh5 - Immunization history:: Adult Immunizations up to date. - Social history:: Smoking status: Patient denies any tobacco usage or history of. ROS: 18:08 Constitutional: Negative for fever, chills, and weight loss, Eyes: Negative for injury, kdr pain, redness, and discharge, Neck: Negative for injury, pain, and swelling, Cardiovascular: Negative for chest pain, palpitations, and edema, Respiratory: Negative for shortness of breath, cough, wheezing, and pleuritic chest pain, Abdomen/GI: Negative for abdominal pain, nausea, vomiting, diarrhea, and constipation, Back: Negative for injury and pain, : Negative for injury, bleeding, discharge, and swelling. 18:08 MS/extremity: Positive for decreased range of motion, pain, of the left antecubital area, left elbow, lateral aspect of right knee, posterior aspect of right knee, medial aspect of right knee and right knee. Exam: 18:08 Constitutional: This is a well developed, well nourished patient who is awake, alert, kdr and in no acute distress. Neck: Trachea midline, no thyromegaly or masses palpated, and no cervical lymphadenopathy. Supple, full range of motion without nuchal rigidity, or vertebral point tenderness. No Meningismus. Chest/axilla: Normal chest wall appearance and motion. Nontender with no deformity. No lesions are appreciated. Cardiovascular: Regular rate and rhythm with a normal S1 and S2. No gallops, murmurs, or rubs. Normal PMI, no JVD. No pulse deficits. Respiratory: Lungs have equal breath sounds bilaterally, clear to auscultation and percussion. No rales, rhonchi or wheezes noted. No increased work of breathing, no retractions or nasal flaring. Abdomen/GI: Soft, non-tender, with normal bowel sounds. No distension or tympany. No guarding or rebound. No evidence of tenderness throughout. Back: No spinal tenderness. No costovertebral tenderness. Full range of motion. Skin: Warm, dry with normal turgor. Normal color with no rashes, no lesions, and no evidence of cellulitis. 18:08 Head/face: Noted is abrasion(s), that are moderate, of the right eye, contusion, that is superficial, deformity, ecchymosis, erythema, hematoma, swelling, that is mild, of the . Vital Signs: 17:13 BP 167 / 177; Pulse 102; Resp 16; Temp 98.6; Pulse Ox 98% ; Weight 58.06 kg; Height 5 jh5 ft. 6 in. (167.64 cm); Pain 10/10; 18:51 BP 177 / 99; Pulse 86; Resp 17; Pulse Ox 96% on R/A; tw2 20:53 BP 178 / 86; Pulse 86; Resp 18; Pulse Ox 97% ; vc1 17:13 Body Mass Index 20.66 (58.06 kg, 167.64 cm) jh5 [place] Coma Score: 17:43 Eye Response: spontaneous(4). Verbal Response: oriented(5). Motor Response: obeys ph commands(6). Total: 15. 18:08 Eye Response: spontaneous(4). Verbal Response: oriented(5). Motor Response: obeys kdr commands(6). Total: 15. 19:18 Eye Response: spontaneous(4). Verbal Response: oriented(5). Motor Response: obeys ph commands(6). Total: 15. Trauma Score (Adult): 17:43 Eye Response: spontaneous(1); Verbal Response: oriented(1); Motor Response: obeys ph commands(2); Systolic BP: > 89 mm Hg(4); Respiratory Rate: 10 to 29 per min(4); [place] Score: 15; Trauma Score: 12 19:18 Eye Response: spontaneous(1); Verbal Response: oriented(1); Motor Response: obeys ph commands(2); Systolic BP: > 89 mm Hg(4); Respiratory Rate: 10 to 29 per min(4); [place] Score: 15; Trauma Score: 12 MDM: 18:08 Data reviewed: vital signs, nurses notes, lab test result(s), radiologic studies. kdr Counseling: I had a detailed discussion with the patient and/or guardian regarding: the historical points, exam findings, and any diagnostic results supporting the discharge/admit diagnosis, lab results. 19:26 Patient medically screened. kdr 01/28 17:25 Order name: Basic Metabolic Panel; Complete Time: 18:42 kdr 01/28 17:25 Order name: CBC with Diff; Complete Time: 18:42 kdr 01/28 17:25 Order name: Type And Screen; Complete Time: 19:14 kdr 01/28 17:25 Order name: CT Head C Spine kdr 01/28 17:28 Order name: Knee Right 3 View XRAY; Complete Time: 18:42 kdr 01/28 17:29 Order name: Head C Spine Mpr Wo Con; Complete Time: 18:42 EDMS 01/28 17:25 Order name: Labs collected and sent; Complete Time: 17:50 kdr 01/28 17:31 Order name: Elbow Left 3 View XRAY; Complete Time: 18:42 kdr 01/28 17:33 Order name: IV Saline Lock; Complete Time: 17:50 tw2 01/28 17:41 Order name: Orbits Wo Con W/ Mpr; Complete Time: 18:42 EDMS 01/28 18:44 Order name: Knee Immobilizer: Right; Complete Time: 20:43 kdr 01/28 18:44 Order name: Posterior Elbow Splint: Left; Complete Time: 20:43 kdr 01/28 18:44 Order name: Visual Acuity: Both eyes kdr Administered Medications: 18:50 Drug: Tylenol 650 mg Route: PO; ph 19:17 Follow up: Response: No adverse reaction ph 19:41 Drug: Acetaminophen-Codeine (300 mg-30 mg) 1 tablet Route: PO; aa9 Disposition Summary: 01/28/22 19:26 Discharge Ordered Location: Home kdr Problem: new kdr Symptoms: have improved kdr Condition: Stable kdr Diagnosis - Syncope Near kdr - Unspecified injury of head, initial encounter kdr - Contusion of unspecified part of head kdr - Contusion of eyeball and orbital tissues, right eye, initial encounter kdr - Nondisplaced fracture of head of left radius, initial encounter for closed fracture kdr - Nondisplaced transverse fracture of right patella, initial encounter for closed kdr fracture Followup: kdr - With: Private Physician - When: 2 - 3 days - Reason: If symptoms return, Further diagnostic work-up, Recheck today's complaints, Continuance of care, Re-evaluation by your physician Discharge Instructions: - Discharge Summary Sheet kdr - Hematoma, [id number] kdr - Patellar Fracture, Adult kdr - Radial Head Fracture kdr - Head Injury, Adult, [id number] kdr - Eye Contusion, [id number] kdr Forms: - Medication Reconciliation Form kdr - Thank You Letter kdr - Antibiotic Education kdr - Prescription Opioid Use kdr Prescriptions: - Tylenol-Codeine #3 300 mg-30 mg Oral - take 1 tablet by ORAL route every 4-6 hours As needed; 16 tablet; Refills: 0, kdr Product Selection Permitted - Cephalexin 500 mg Oral Capsule - take 1 capsule by ORAL route every 12 hours for 5 days; 10 capsule; Refills: 0, kdr Product Selection Permitted Signatures: Dispatcher [employer] Daron Vilchis MD MD kdr Hall, Patricia RN RN ph Morales, Ginger, RN RN tw2 Rosaura Mcgowan RN RN jh5 Annalee Bower RN RN aa9 Corrections: (The following items were deleted from the chart) 17:41 17:32 Facial Bones W/ [id number] ordered. EDMS EDMS
[2022-01-28] MEDS ORDERED: CODEINE 30MG/APAP 300MG TAB ONE (19:48)
== END 2022-01-28 21:05 | disposition home or self-care (01) ==
LOC: ER 17:02
PROC: 2W3DX1Z Immobilization of Left Lower Arm using Splint (ICD-10-PCS; principal; 2022-01-28)
DX: R55 Syncope and collapse (principal); S82.001A Unspecified fracture of right patella, initial encounter for closed fracture; S52.125A Nondisplaced fracture of head of left radius, initial encounter for closed fracture; S09.90XA Unspecified injury of head, initial encounter; S05.11XA Contusion of eyeball and orbital tissues, right eye, initial encounter; E03.9 Hypothyroidism, unspecified
CPT/HCPCS: 85025; 80048; 36415; 86900; 86850; 86901; 70450; 70480; 72125; 76377; 73080; 73562; 29125; J2270; J2405